=== PATIENT | female | born 1970 | race African-American/Black ===

== ENCOUNTER 2017-10-15 00:59 | Inpatient (IN) ==
[2017-10-15] MEDS ORDERED: ONDANSETRON 4 MG/2 ML VIAL ONE (01:37)
[2017-10-15] MEDS ORDERED: fentaNYL 100 MCG/2 ML VIAL ONE (01:38)
[2017-10-15] MEDS ORDERED: fentaNYL 100 MCG/2 ML VIAL IV STA (02:05)
[2017-10-15] MEDS ORDERED: ONDANSETRON 4 MG/2 ML VIAL IV STA (02:05)
[2017-10-15] MEDS ORDERED: SODIUM CHLORIDE 0.9% 1,000 ML IV STA (02:06)
[2017-10-15 02:14] LABS: Basophils % 0.2 % (0.0-0.8); Eosinophils % 0.2 % (0.00-10.9); Hematocrit 31.8 VOL% (35.7-47.0); Hemoglobin 10.2 GM/DL (12.0-16.0); Immature Granulocytes % 0.2 %; Immature Granulocytes Absolute 0.01 #; Lymphocytes # 1.4 10*3/uL (1.4-4.0); Lymphocytes % 23.4 % (21.3-54.2); Mean Corpuscular HGB Conc 32.1 GM/DL (32-36); Mean Corpuscular Hemoglobin 20 PG (27-34); Mean Corpuscular Volume 63.5 FL (87-102); Mean Platelet Volume 9.3 FL (9.6-12.0); Monocytes # 0.5 10*3/uL (0.11-0.8); Neutrophils # 4.1 10*3/uL (1.4-7.4); Platelet Count 303 T/CUMM (130-400); Red Blood Count 5.01 MC/CUMM (3.8-5.5); Red Cell Distribution Width 23.2 % (9.3-17.3)
[2017-10-15 02:34] LABS: Albumin 2.5 G/DL (3.4-5.0); Bilirubin,Total 0.6 MG/DL (0.2-1.0); Calcium 8.5 MG/DL (8.5-10.1); Osmolality,Calculated 279.5 MOS/KG (273-304); Potassium 3.4 MMOL/L (3.5-5.1); Total Protein 8.3 G/DL (6.4-8.3)
[2017-10-15 02:49] LABS: Anisocytosis 2+; Poikilocytosis 1+
[2017-10-15 02:50] LABS: Target Cells 2+
[2017-10-15] MEDS ORDERED: MEPERIDINE 50 MG/1 ML VIAL ONE (03:15)
[2017-10-15] MEDS ORDERED: MEPERIDINE 50 MG/1 ML VIAL IV STA (03:15)
[2017-10-15] MEDS ORDERED: ONDANSETRON 4 MG/2 ML VIAL IV PRN (04:33)
[2017-10-15] MEDS: HYDROXYUREA 500 MG CAPSULE PO SCH ×3 (08:07→20:54)
[2017-10-15] MEDS: DOCUSATE SODIUM 100 MG CAPSULE PO PRN (08:07)
[2017-10-15] MEDS: PANTOPRAZOLE 40 MG TABLET PO SCH (08:07)
[2017-10-15] MEDS: DIVALPROEX 500 MG TABLET PO SCH ×3 (08:08→20:54)
[2017-10-15] MEDS: ENOXAPARIN 40 MG/0.4 ML SYRINGE SUBCUT SCH (08:08)
[2017-10-15] MEDS: MEPERIDINE 50 MG/1 ML VIAL IV PRN ×4 (08:08→20:59)
[2017-10-15] MEDS: FOLIC ACID 1 MG TABLET PO SCH (08:08)
[2017-10-15] MEDS: SODIUM CHLORIDE 0.9% 1,000 ML IV SCH ×2 (08:10→20:58)
[2017-10-15] MEDS: FERROUS SULFATE 325 MG TABLET PO SCH ×3 (08:37→20:54)
[2017-10-15] MEDS: IBUPROFEN 800 MG TABLET PO SCH ×3 (11:05→17:41)
[2017-10-16] MEDS: MEPERIDINE 50 MG/1 ML VIAL IV PRN ×5 (01:49→20:36)
[2017-10-16 04:33] LABS: Basophils % 0.2 % (0.0-0.8); Eosinophils % 0.4 % (0.00-10.9); Hematocrit 18.2 VOL% (35.7-47.0); Immature Granulocytes % 0.2 %; Immature Granulocytes Absolute 0.01 #; Lymphocytes # 1.4 10*3/uL (1.4-4.0); Lymphocytes % 31.3 % (21.3-54.2); Mean Corpuscular HGB Conc 33.5 GM/DL (32-36); Mean Corpuscular Hemoglobin 21 PG (27-34); Mean Corpuscular Volume 61.5 FL (87-102); Mean Platelet Volume 8.6 FL (9.6-12.0); Monocytes # 0.3 10*3/uL (0.11-0.8); Monocytes % 7.5 % (1.7-12.7); Neutrophils # 2.7 10*3/uL (1.4-7.4); Neutrophils % 60.4 % (38.7-73.9); Platelet Count 240 T/CUMM (130-400); Red Blood Count 2.96 MC/CUMM (3.8-5.5); White Blood Count 4.5 T/CUMM (4-12)
[2017-10-16 04:36] LABS: Hemoglobin 6.1 GM/DL (12.0-16.0)
[2017-10-16 05:05] LABS: Calcium 7.8 MG/DL (8.5-10.1); Osmolality,Calculated 284.8 MOS/KG (273-304); Potassium 3.7 MMOL/L (3.5-5.1)
[2017-10-16 05:21] LABS: Basophils % 0.3 % (0.0-0.8); Eosinophils % 0.5 % (0.00-10.9); Hematocrit 18.5 VOL% (35.7-47.0); Immature Granulocytes % 0.3 %; Immature Granulocytes Absolute 0.01 #; Lymphocytes # 1.2 10*3/uL (1.4-4.0); Lymphocytes % 31.7 % (21.3-54.2); Mean Corpuscular HGB Conc 32.4 GM/DL (32-36); Mean Corpuscular Hemoglobin 21 PG (27-34); Mean Corpuscular Volume 63.6 FL (87-102); Monocytes # 0.2 10*3/uL (0.11-0.8); Monocytes % 6.2 % (1.7-12.7); Neutrophils # 2.4 10*3/uL (1.4-7.4); Platelet Count 238 T/CUMM (130-400); Red Blood Count 2.91 MC/CUMM (3.8-5.5); Red Cell Distribution Width 22.1 % (9.3-17.3); White Blood Count 3.9 T/CUMM (4-12)
[2017-10-16 05:42] LABS: Hypochromasia 1+; Ovalocytes Slight; Platelet Estimate Adequate; Target Cells Few
[2017-10-16 05:43] LABS: Microcytosis Slight
[2017-10-16 09:32] LABS: Hematocrit 20.5 VOL% (35.7-47.0); Hemoglobin 6.6 GM/DL (12.0-16.0)
[2017-10-16] MEDS: HYDROXYUREA 500 MG CAPSULE PO SCH ×3 (09:32→20:35)
[2017-10-16] MEDS: FOLIC ACID 1 MG TABLET PO SCH (09:32)
[2017-10-16] MEDS: ENOXAPARIN 40 MG/0.4 ML SYRINGE SUBCUT SCH (09:33)
[2017-10-16] MEDS: IBUPROFEN 800 MG TABLET PO SCH ×3 (09:33→16:53)
[2017-10-16] MEDS: DIVALPROEX 500 MG TABLET PO SCH ×3 (09:33→20:35)
[2017-10-16] MEDS: PANTOPRAZOLE 40 MG TABLET PO SCH (09:33)
[2017-10-16] MEDS: FERROUS SULFATE 325 MG TABLET PO SCH ×3 (09:33→20:36)
[2017-10-16] MEDS: SODIUM CHLORIDE 0.9% 1,000 ML IV SCH ×2 (09:35→22:55)
[2017-10-16] MEDS ORDERED: SODIUM CHLORIDE 0.9% 1,000 ML IV PRN ×2 (09:52→13:59)
[2017-10-16] MEDS: DOCUSATE SODIUM 100 MG CAPSULE PO PRN (14:21)
[2017-10-16] MEDS: MEGESTROL 40 MG TABLET PO SCH ×2 (16:53→20:35)
[2017-10-16 18:33] LABS: Hematocrit 22.3 VOL% (35.7-47.0); Hemoglobin 7.1 GM/DL (12.0-16.0)
[2017-10-17] MEDS: MEPERIDINE 50 MG/1 ML VIAL IV PRN ×4 (00:05→10:58)
[2017-10-17 04:26] LABS: Basophils % 0.2 % (0.0-0.8); Eosinophils % 0.4 % (0.00-10.9); Hematocrit 26.4 VOL% (35.7-47.0); Hemoglobin 8.7 GM/DL (12.0-16.0); Immature Granulocytes % 0.5 %; Immature Granulocytes Absolute 0.03 #; Lymphocytes # 1.4 10*3/uL (1.4-4.0); Lymphocytes % 25.3 % (21.3-54.2); Mean Corpuscular Hemoglobin 23 PG (27-34); Mean Corpuscular Volume 68.4 FL (87-102); Mean Platelet Volume 9.1 FL (9.6-12.0); Monocytes # 0.3 10*3/uL (0.11-0.8); Monocytes % 5.3 % (1.7-12.7); Neutrophils # 3.9 10*3/uL (1.4-7.4); Neutrophils % 68.3 % (38.7-73.9); Platelet Count 270 T/CUMM (130-400); Red Blood Count 3.86 MC/CUMM (3.8-5.5); Red Cell Distribution Width 25.5 % (9.3-17.3); White Blood Count 5.7 T/CUMM (4-12)
[2017-10-17 05:10] LABS: Hypochromasia 1+; Target Cells 1+
[2017-10-17 05:11] LABS: Microcytosis 2+; Ovalocytes Slight
[2017-10-17 05:12] LABS: Platelet Estimate Normal
[2017-10-17 05:14] LABS: Potassium 3.8 MMOL/L (3.5-5.1)
[2017-10-17 08:10] VITALS: BP 119/78
[2017-10-17] MEDS: HYDROXYUREA 500 MG CAPSULE PO SCH (08:44)
[2017-10-17] MEDS: ENOXAPARIN 40 MG/0.4 ML SYRINGE SUBCUT SCH (08:44)
[2017-10-17] MEDS: FERROUS SULFATE 325 MG TABLET PO SCH (08:45)
[2017-10-17] MEDS: MEGESTROL 40 MG TABLET PO SCH (08:45)
[2017-10-17] MEDS: DIVALPROEX 500 MG TABLET PO SCH (08:45)
[2017-10-17] MEDS: FOLIC ACID 1 MG TABLET PO SCH (08:45)
[2017-10-17] MEDS: IBUPROFEN 800 MG TABLET PO SCH ×2 (08:45→11:01)
[2017-10-17] MEDS: PANTOPRAZOLE 40 MG TABLET PO SCH (08:45)
[2017-10-17] MEDS ORDERED: HEPARIN LOCK FLUSH 500 UNIT/5 ML SYRINGE IV ONE (12:52)
== END 2017-10-17 13:45 | disposition home or self-care (01) | DRG 662 ==
LOC: N.EDINP 00:59 → N.ED 00:59 → SUATTDRO 03:51 → N.4E 04:46
PROVIDERS: ADMIT Emergency Medicine; ATTEND Internal Medicine

== ENCOUNTER 2018-06-30 23:10 | Inpatient (IN) ==
[2018-06-30] MEDS ORDERED: SODIUM CHLORIDE 0.9% 1,000 ML IV STA (23:37)
[2018-06-30] MEDS ORDERED: ONDANSETRON 4 MG/2 ML VIAL IV ONE (23:38)
[2018-06-30] MEDS ORDERED: FAMOTIDINE 20 MG/2 ML VIAL IV STA (23:42)
[2018-06-30] MEDS ORDERED: HYDROmorphone 2 MG/1 ML VIAL IV STA (23:42)
[2018-06-30 23:49] LABS: Basophils % 0.2 % (0.0-0.8); Eosinophils % 0.5 % (0.00-10.9); Hematocrit 26.5 VOL% (35.7-47.0); Hemoglobin 8.6 GM/DL (12.0-16.0); Immature Granulocytes % 0.3 %; Immature Granulocytes Absolute 0.02 #; Lymphocytes % 30.4 % (21.3-54.2); Mean Corpuscular HGB Conc 32.5 GM/DL (32-36); Mean Corpuscular Hemoglobin 21 PG (27-34); Monocytes # 0.6 10*3/uL (0.11-0.8); Neutrophils # 3.9 10*3/uL (1.4-7.4); Neutrophils % 59.6 % (38.7-73.9); Platelet Count 353 T/CUMM (130-400); Red Blood Count 4.08 MC/CUMM (3.8-5.5); Red Cell Distribution Width 20.1 % (9.3-17.3); White Blood Count 6.6 T/CUMM (4-12)
[2018-07-01] LABS: Alanine Aminotransferase < 9 U/L (13-56); Alkaline Phosphatase 64 U/L (45-117); Aspartate Amino Transferase 9 U/L (0-37); Blood Urea Nitrogen 10 MG/DL (7-18); Calcium 8.8 MG/DL (8.5-10.1); Glucose 100 MG/DL (74-106); Osmolality,Calculated 275.5 MOS/KG (273-304); Potassium 3.7 MMOL/L (3.5-5.1); Sodium 139 MMOL/L (136-145); Total Protein 8.5 G/DL (6.4-8.3)
[2018-07-01] MEDS ORDERED: HYDROmorphone 2 MG/1 ML VIAL IV STA (00:58)
[2018-07-01] MEDS ORDERED: PROMETHAZINE INJ 12.5 MG in SODIUM CHLORIDE 0.9% 50 ML IV STA (00:58)
[2018-07-01] MEDS ORDERED: SODIUM CHLORIDE 0.45% 1,000 ML IV SCH (01:00)
[2018-07-01] MEDS ORDERED: PROMETHAZINE 25 MG/1 ML VIAL ONE (01:05)
[2018-07-01] MEDS: ENOXAPARIN 40 MG/0.4 ML SYRINGE SUBCUT SCH (01:19)
[2018-07-01] MEDS ORDERED: ENOXAPARIN 40 MG/0.4 ML SYRINGE ONE (01:19)
[2018-07-01] MEDS: ONDANSETRON 4 MG/2 ML VIAL IV PRN (02:23)
[2018-07-01] MEDS: HYDROmorphone 2 MG/1 ML VIAL IV PRN ×5 (02:25→20:26)
[2018-07-01 05:30] LABS: Basophils % 0.2 % (0.0-0.8); Eosinophils % 0.2 % (0.00-10.9); Hematocrit 23.2 VOL% (35.7-47.0); Hemoglobin 7.6 GM/DL (12.0-16.0); Immature Granulocytes % 0.4 %; Immature Granulocytes Absolute 0.02 #; Lymphocytes # 1.8 10*3/uL (1.4-4.0); Lymphocytes % 32.7 % (21.3-54.2); Mean Corpuscular HGB Conc 32.8 GM/DL (32-36); Mean Corpuscular Hemoglobin 22 PG (27-34); Mean Corpuscular Volume 65.5 FL (87-102); Mean Platelet Volume 9.7 FL (9.6-12.0); Monocytes # 0.5 10*3/uL (0.11-0.8); Monocytes % 8.6 % (1.7-12.7); Neutrophils # 3.2 10*3/uL (1.4-7.4); Neutrophils % 57.9 % (38.7-73.9); Platelet Count 307 T/CUMM (130-400); Red Blood Count 3.54 MC/CUMM (3.8-5.5); Red Cell Distribution Width 19.9 % (9.3-17.3); White Blood Count 5.5 T/CUMM (4-12)
[2018-07-01 05:51] LABS: Calcium 8.2 MG/DL (8.5-10.1); Osmolality,Calculated 278.4 MOS/KG (273-304); Potassium 3.3 MMOL/L (3.5-5.1)
[2018-07-01] MEDS ORDERED: POTASSIUM CHLORIDE 20 MEQ TABLET PO ONE (06:42)
[2018-07-01] MEDS: PANTOPRAZOLE 40 MG TABLET PO SCH (08:57)
[2018-07-01] MEDS: LACTATED RINGERS 1,000 ML IV SCH ×2 (11:32→20:26)
[2018-07-01] MEDS: HYDROXYUREA 500 MG CAPSULE PO SCH ×2 (16:16→20:26)
[2018-07-01] MEDS: DIVALPROEX 500 MG TABLET PO SCH (20:25)
[2018-07-02] MEDS: ENOXAPARIN 40 MG/0.4 ML SYRINGE SUBCUT SCH (01:09)
[2018-07-02] MEDS: HYDROmorphone 2 MG/1 ML VIAL IV PRN ×6 (01:14→20:13)
[2018-07-02] MEDS: LACTATED RINGERS 1,000 ML IV SCH ×3 (04:46→20:37)
[2018-07-02 07:36] LABS: Eosinophils % 0.5 % (0.00-10.9); Hematocrit 24.4 VOL% (35.7-47.0); Hemoglobin 8.1 GM/DL (12.0-16.0); Immature Granulocytes % 0.5 %; Immature Granulocytes Absolute 0.02 #; Lymphocytes # 1.2 10*3/uL (1.4-4.0); Lymphocytes % 29.3 % (21.3-54.2); Mean Corpuscular HGB Conc 33.2 GM/DL (32-36); Mean Corpuscular Hemoglobin 22 PG (27-34); Mean Corpuscular Volume 64.7 FL (87-102); Monocytes # 0.4 10*3/uL (0.11-0.8); Monocytes % 10.5 % (1.7-12.7); Neutrophils # 2.3 10*3/uL (1.4-7.4); Neutrophils % 59.2 % (38.7-73.9); Platelet Count 287 T/CUMM (130-400); Red Blood Count 3.77 MC/CUMM (3.8-5.5); Red Cell Distribution Width 19.9 % (9.3-17.3); White Blood Count 3.9 T/CUMM (4-12)
[2018-07-02 07:55] LABS: Calcium 8.8 MG/DL (8.5-10.1); Osmolality,Calculated 270.8 MOS/KG (273-304); Potassium 3.8 MMOL/L (3.5-5.1)
[2018-07-02] MEDS: FOLIC ACID 1 MG TABLET PO SCH (08:19)
[2018-07-02] MEDS: PANTOPRAZOLE 40 MG TABLET PO SCH (08:19)
[2018-07-02] MEDS: HYDROXYUREA 500 MG CAPSULE PO SCH ×3 (08:19→20:13)
[2018-07-02] MEDS: DIVALPROEX 500 MG TABLET PO SCH (20:13)
[2018-07-03] MEDS: ENOXAPARIN 40 MG/0.4 ML SYRINGE SUBCUT SCH (01:31)
[2018-07-03] MEDS: HYDROmorphone 2 MG/1 ML VIAL IV PRN ×4 (02:58→12:55)
[2018-07-03] MEDS: LACTATED RINGERS 1,000 ML IV SCH ×2 (04:05→13:32)
[2018-07-03] MEDS: FOLIC ACID 1 MG TABLET PO SCH (09:22)
[2018-07-03] MEDS: HYDROXYUREA 500 MG CAPSULE PO SCH (09:22)
[2018-07-03] MEDS: PANTOPRAZOLE 40 MG TABLET PO SCH (09:22)
[2018-07-03] MEDS: ONDANSETRON 4 MG/2 ML VIAL IV PRN (09:29)
[2018-07-03 12:25] VITALS: BP 90/58
[2018-07-03] MEDS ORDERED: HEPARIN LOCK FLUSH 500 UNIT/5 ML SYRINGE IV ONE (14:11)
== END 2018-07-03 14:15 | disposition home or self-care (01) | DRG 662 ==
LOC: N.ED 23:10 → N.EDINP 07-01 00:46 → SUATTDRO 07-01 00:46 → N.4E 07-01 01:28
PROVIDERS: ADMIT Family Medicine; ATTEND Emergency Medicine

== ENCOUNTER 2019-05-24 18:40 | Inpatient (IN) ==
[2019-05-24] MEDS ORDERED: SODIUM CHLORIDE 0.9% 1,000 ML IV STA (19:00)
[2019-05-24] MEDS ORDERED: ONDANSETRON 4 MG/2 ML VIAL IV STA (19:00)
[2019-05-24] MEDS ORDERED: MEPERIDINE 25 MG/1 ML VIAL IM STA (19:00)
[2019-05-24 19:29] LABS: Basophils % 0.2 % (0.0-0.8); Hematocrit 27.5 VOL% (35.7-47.0); Hemoglobin 8.9 GM/DL (12.0-16.0); Immature Granulocytes % 0.2 %; Immature Granulocytes Absolute 0.01 #; Lymphocytes # 1.3 10*3/uL (1.4-4.0); Lymphocytes % 21.9 % (21.3-54.2); Mean Corpuscular HGB Conc 32.4 GM/DL (32-36); Mean Corpuscular Volume 65.6 FL (87-102); Mean Platelet Volume 8.7 FL (9.6-12.0); Neutrophils % 70.7 % (38.7-73.9); Platelet Count 319 T/CUMM (130-400); Red Blood Count 4.19 MC/CUMM (3.8-5.5); Red Cell Distribution Width 20.5 % (9.3-17.3)
[2019-05-24 19:41] LABS: Barbiturates Screen,Urine Negative (Negative); Benzodiazepines Screen,Urine Negative (Negative); Cannabinoid Screen,Urine Negative (Negative); Opiate Screen,Urine Positive (Negative); Phencyclidine Screen,Urine Negative (Negative)
[2019-05-24 19:46] LABS: INR 1.1; PT Patient Result 11.8 SECS (9.6-12.2)
[2019-05-24 19:49] LABS: Apearance,Urine CLEAR (Clear); Bilirubin,Urine Negative (Negative); Blood, Urine Moderate mg/dL (Negative); Glucose,Urine (UA) Negative (Negative); Ketones,Urine Negative (Negative); Mucus,Urine Occasional /LPF (Occasional); Nitrite,Urine Negative (Negative); Protein,Urine Negative; RBC,Urine 5 /HPF (0-4); Squamous Epithelial Cell,Urine Occasional /HPF (0-10); Urine Color Yellow (Yellow); Urine Specific Gravity 1.013 (1.001-1.035); Urine Urobilinogen < 2.0 EU/DL (0.2-1.0); WBC,Urine <1 /HPF (0-6)
[2019-05-24 19:53] LABS: Alanine Aminotransferase < 9 U/L (13-56); Albumin 2.4 G/DL (3.4-5.0); Alkaline Phosphatase 55 U/L (45-117); Aspartate Amino Transferase 9 U/L (0-37); Bilirubin,Total < 0.39 MG/DL (0.2-1.0); Blood Urea Nitrogen 8 MG/DL (7-18); Calcium 8.3 MG/DL (8.5-10.1); Estimated Glom Filtration Rate 96 ML/MIN; Glucose 87 MG/DL (74-106); Osmolality,Calculated 282.8 MOS/KG (273-304); Total Protein 7.9 G/DL (6.4-8.3); Troponin I < 0.015 NG/ML (0.00-0.045)
[2019-05-24] MEDS ORDERED: MEPERIDINE 25 MG/1 ML VIAL IV STA (20:17)
[2019-05-24] MEDS ORDERED: LACTULOSE 20 GM/30 ML UDCUP PO PRN (20:48)
[2019-05-24] MEDS ORDERED: BISACODYL 5 MG TABLET PO PRN (20:48)
[2019-05-24] MEDS ORDERED: ACETAMINOPHEN 325 MG TABLET PO PRN (20:48)
[2019-05-24 21:25] LABS: Thyroid Stimulating Hormone 0.751 uIU/ml (0.358-3.74)
[2019-05-24] MEDS: SODIUM CHLORIDE 0.9% 1,000 ML IV SCH (21:50)
[2019-05-24] MEDS: ENOXAPARIN 40 MG/0.4 ML SYRINGE SUBCUT SCH (23:36)
[2019-05-25] MEDS: HYDROmorphone 2 MG/1 ML VIAL IV PRN ×5 (00:24→21:02)
[2019-05-25 05:34] LABS: Basophils % 0.2 % (0.0-0.8); Eosinophils % 0.2 % (0.00-10.9); Hematocrit 24.9 VOL% (35.7-47.0); Immature Granulocytes % 0.2 %; Immature Granulocytes Absolute 0.01 #; Lymphocytes # 1.6 10*3/uL (1.4-4.0); Lymphocytes % 32.4 % (21.3-54.2); Mean Corpuscular HGB Conc 32.1 GM/DL (32-36); Mean Corpuscular Volume 66.2 FL (87-102); Mean Platelet Volume 9.3 FL (9.6-12.0); Monocytes % 7.3 % (1.7-12.7); Neutrophils % 59.7 % (38.7-73.9); Platelet Count 337 T/CUMM (130-400); Red Blood Count 3.76 MC/CUMM (3.8-5.5); Red Cell Distribution Width 20.1 % (9.3-17.3); White Blood Count 4.8 T/CUMM (4-12)
[2019-05-25 05:54] LABS: Calcium 8.1 MG/DL (8.5-10.1); Osmolality,Calculated 284.7 MOS/KG (273-304)
[2019-05-25] MEDS: HYDROXYUREA 500 MG CAPSULE PO SCH ×3 (08:52→21:03)
[2019-05-25] MEDS: POTASSIUM CHLORIDE 10 MEQ TABLET PO SCH ×2 (08:52→21:03)
[2019-05-25] MEDS: FOLIC ACID 1 MG TABLET PO SCH (08:53)
[2019-05-25] MEDS: tiZANidine 4 MG TABLET PO SCH ×3 (08:53→21:03)
[2019-05-25] MEDS: MEGESTROL 40 MG TABLET PO SCH ×3 (08:57→21:03)
[2019-05-25] MEDS: PANTOPRAZOLE 40 MG TABLET PO SCH (08:57)
[2019-05-25] MEDS ORDERED: FERROUS SULFATE 325 MG TABLET PO SCH (09:00)
[2019-05-25] MEDS: SODIUM CHLORIDE 0.9% 1,000 ML IV SCH ×2 (14:02→21:12)
[2019-05-25] MEDS: ENOXAPARIN 40 MG/0.4 ML SYRINGE SUBCUT SCH (21:03)
[2019-05-25] MEDS: DIVALPROEX 500 MG TABLET PO SCH (21:03)
[2019-05-26] MEDS: HYDROmorphone 2 MG/1 ML VIAL IV PRN ×5 (02:20→20:52)
[2019-05-26] MEDS: SODIUM CHLORIDE 0.9% 1,000 ML IV SCH ×2 (03:56→17:18)
[2019-05-26 05:43] LABS: Eosinophils % 0.6 % (0.00-10.9); Hematocrit 20.5 VOL% (35.7-47.0); Hemoglobin 6.7 GM/DL (12.0-16.0); Immature Granulocytes % 0.4 %; Immature Granulocytes Absolute 0.02 #; Lymphocytes # 1.6 10*3/uL (1.4-4.0); Lymphocytes % 33.3 % (21.3-54.2); Mean Corpuscular HGB Conc 32.7 GM/DL (32-36); Mean Corpuscular Volume 64.9 FL (87-102); Mean Platelet Volume 8.9 FL (9.6-12.0); Monocytes % 7.5 % (1.7-12.7); Neutrophils % 58.2 % (38.7-73.9); Platelet Count 273 T/CUMM (130-400); Red Blood Count 3.16 MC/CUMM (3.8-5.5); Red Cell Distribution Width 19.9 % (9.3-17.3); White Blood Count 4.9 T/CUMM (4-12)
[2019-05-26] MEDS ORDERED: SODIUM CHLORIDE 0.9% 1,000 ML IV PRN (06:25)
[2019-05-26] MEDS: POTASSIUM CHLORIDE 10 MEQ TABLET PO SCH ×2 (09:25→20:49)
[2019-05-26] MEDS: PANTOPRAZOLE 40 MG TABLET PO SCH (09:25)
[2019-05-26] MEDS: MEGESTROL 40 MG TABLET PO SCH ×3 (09:25→20:52)
[2019-05-26] MEDS: HYDROXYUREA 500 MG CAPSULE PO SCH ×3 (09:25→20:48)
[2019-05-26] MEDS: FOLIC ACID 1 MG TABLET PO SCH (09:25)
[2019-05-26] MEDS: tiZANidine 4 MG TABLET PO SCH ×3 (09:25→20:52)
[2019-05-26 16:33] LABS: Hematocrit 26.8 VOL% (35.7-47.0)
[2019-05-26] MEDS: DIVALPROEX 500 MG TABLET PO SCH (20:48)
[2019-05-26] MEDS: ENOXAPARIN 40 MG/0.4 ML SYRINGE SUBCUT SCH (20:52)
[2019-05-27] MEDS: HYDROmorphone 2 MG/1 ML VIAL IV PRN ×5 (02:23→20:05)
[2019-05-27] MEDS: SODIUM CHLORIDE 0.9% 1,000 ML IV SCH ×3 (02:26→18:20)
[2019-05-27 04:54] LABS: Basophils % 0.2 % (0.0-0.8); Eosinophils % 0.5 % (0.00-10.9); Hematocrit 26.2 VOL% (35.7-47.0); Hemoglobin 8.7 GM/DL (12.0-16.0); Immature Granulocytes % 0.3 %; Immature Granulocytes Absolute 0.02 #; Lymphocytes # 1.7 10*3/uL (1.4-4.0); Lymphocytes % 26.8 % (21.3-54.2); Mean Corpuscular HGB Conc 33.2 GM/DL (32-36); Mean Corpuscular Volume 68.2 FL (87-102); Mean Platelet Volume 9.1 FL (9.6-12.0); Monocytes % 5.9 % (1.7-12.7); Neutrophils % 66.3 % (38.7-73.9); Platelet Count 282 T/CUMM (130-400); Red Blood Count 3.84 MC/CUMM (3.8-5.5); Red Cell Distribution Width 21.8 % (9.3-17.3); White Blood Count 6.3 T/CUMM (4-12)
[2019-05-27] MEDS: MEGESTROL 40 MG TABLET PO SCH ×3 (08:53→20:59)
[2019-05-27] MEDS: HYDROXYUREA 500 MG CAPSULE PO SCH ×3 (08:53→20:59)
[2019-05-27] MEDS: FOLIC ACID 1 MG TABLET PO SCH (08:53)
[2019-05-27] MEDS: PANTOPRAZOLE 40 MG TABLET PO SCH (08:53)
[2019-05-27] MEDS: POTASSIUM CHLORIDE 10 MEQ TABLET PO SCH ×2 (08:53→20:59)
[2019-05-27] MEDS: tiZANidine 4 MG TABLET PO SCH ×3 (08:53→20:59)
[2019-05-27] MEDS: NAFCILLIN 2,000 MG in SODIUM CHLORIDE 0.9% 100 ML IV SCH ×3 (12:19→20:09)
[2019-05-27] MEDS: ONDANSETRON 4 MG/2 ML VIAL IV PRN (18:50)
[2019-05-27] MEDS: DIVALPROEX 500 MG TABLET PO SCH (20:59)
[2019-05-28] MEDS: HYDROmorphone 2 MG/1 ML VIAL IV PRN ×9 (00:52→23:33)
[2019-05-28] MEDS: NAFCILLIN 2,000 MG in SODIUM CHLORIDE 0.9% 100 ML IV SCH ×7 (00:54→23:36)
[2019-05-28] MEDS: SODIUM CHLORIDE 0.9% 1,000 ML IV SCH ×2 (03:48→16:46)
[2019-05-28 04:56] LABS: Eosinophils % 0.4 % (0.00-10.9); Hematocrit 26.4 VOL% (35.7-47.0); Hemoglobin 8.7 GM/DL (12.0-16.0); Immature Granulocytes % 0.2 %; Immature Granulocytes Absolute 0.01 #; Lymphocytes # 1.3 10*3/uL (1.4-4.0); Lymphocytes % 25.4 % (21.3-54.2); Mean Corpuscular Volume 68.8 FL (87-102); Mean Platelet Volume 8.8 FL (9.6-12.0); Monocytes % 5.4 % (1.7-12.7); Neutrophils % 68.6 % (38.7-73.9); Platelet Count 261 T/CUMM (130-400); Red Blood Count 3.84 MC/CUMM (3.8-5.5); Red Cell Distribution Width 22.4 % (9.3-17.3)
[2019-05-28 05:33] LABS: Calcium 8.3 MG/DL (8.5-10.1); Osmolality,Calculated 278.3 MOS/KG (273-304)
[2019-05-28] MEDS: MEGESTROL 40 MG TABLET PO SCH ×3 (08:33→20:56)
[2019-05-28] MEDS: POTASSIUM CHLORIDE 10 MEQ TABLET PO SCH ×2 (08:33→20:56)
[2019-05-28] MEDS: PANTOPRAZOLE 40 MG TABLET PO SCH (08:33)
[2019-05-28] MEDS: HYDROXYUREA 500 MG CAPSULE PO SCH ×3 (08:33→20:56)
[2019-05-28] MEDS: FOLIC ACID 1 MG TABLET PO SCH (08:33)
[2019-05-28] MEDS: tiZANidine 4 MG TABLET PO SCH ×3 (08:34→20:56)
[2019-05-28] MEDS ORDERED: ceFAZolin 1,000 MG in SYRINGE 1 EACH IV ONE (10:12)
[2019-05-28] MEDS ORDERED: BUPIVACAINE 0.25% /EPI 10 ML VIAL ONE (10:56)
[2019-05-28] MEDS ORDERED: LIDOCAINE 1% 20 ML VIAL ONE (10:56)
[2019-05-28] MEDS ORDERED: LACTATED RINGERS 1,000 ML IV SCH (11:30)
[2019-05-28] MEDS ORDERED: LIDOCAINE 2% 5 ML VIAL ONE (12:30)
[2019-05-28] MEDS ORDERED: propofoL 200 MG/20 ML VIAL IV ONE (12:30)
[2019-05-28] MEDS ORDERED: MIDAZOLAM 2 MG/2 ML VIAL ONE (12:31)
[2019-05-28] MEDS ORDERED: SODIUM CHLORIDE 0.9% 100 ML IV ONE (12:31)
[2019-05-28] MEDS ORDERED: fentaNYL 100 MCG/2 ML VIAL ONE (12:31)
[2019-05-28] MEDS ORDERED: ONDANSETRON 4 MG/2 ML VIAL IV PRN (12:43)
[2019-05-28] MEDS ORDERED: ONDANSETRON 4 MG/2 ML VIAL ONE (12:44)
[2019-05-28] MEDS ORDERED: HYDROmorphone 2 MG/1 ML VIAL ONE (12:44)
[2019-05-28] MEDS: DIVALPROEX 500 MG TABLET PO SCH (20:56)
[2019-05-29] MEDS: HYDROmorphone 2 MG/1 ML VIAL IV PRN ×5 (04:23→20:48)
[2019-05-29] MEDS: SODIUM CHLORIDE 0.9% 1,000 ML IV SCH (04:23)
[2019-05-29] MEDS: NAFCILLIN 2,000 MG in SODIUM CHLORIDE 0.9% 100 ML IV SCH ×5 (04:28→20:40)
[2019-05-29 05:20] LABS: Eosinophils % 0.4 % (0.00-10.9); Hematocrit 25.2 VOL% (35.7-47.0); Hemoglobin 8.3 GM/DL (12.0-16.0); Immature Granulocytes % 0.2 %; Immature Granulocytes Absolute 0.01 #; Lymphocytes # 1.1 10*3/uL (1.4-4.0); Lymphocytes % 21.6 % (21.3-54.2); Mean Corpuscular HGB Conc 32.9 GM/DL (32-36); Mean Corpuscular Volume 68.3 FL (87-102); Mean Platelet Volume 9.3 FL (9.6-12.0); Monocytes % 6.9 % (1.7-12.7); Neutrophils % 70.9 % (38.7-73.9); Platelet Count 272 T/CUMM (130-400); Red Blood Count 3.69 MC/CUMM (3.8-5.5); Red Cell Distribution Width 22.5 % (9.3-17.3); White Blood Count 5.2 T/CUMM (4-12)
[2019-05-29 05:42] LABS: Hypochromasia 1+; Target Cells Few
[2019-05-29 05:43] LABS: Platelet Estimate Adequate
[2019-05-29 05:44] LABS: Alanine Aminotransferase < 9 U/L (13-56); Alkaline Phosphatase 55 U/L (45-117); Aspartate Amino Transferase 9 U/L (0-37); Blood Urea Nitrogen 7 MG/DL (7-18); Calcium 8.1 MG/DL (8.5-10.1); Estimated Glom Filtration Rate 96 ML/MIN; Glucose 92 MG/DL (74-106); Osmolality,Calculated 278.3 MOS/KG (273-304); Total Protein 6.9 G/DL (6.4-8.3)
[2019-05-29] MEDS: FOLIC ACID 1 MG TABLET PO SCH (08:05)
[2019-05-29] MEDS: HYDROXYUREA 500 MG CAPSULE PO SCH ×3 (08:05→20:40)
[2019-05-29] MEDS: tiZANidine 4 MG TABLET PO SCH ×3 (08:05→20:40)
[2019-05-29] MEDS: POTASSIUM CHLORIDE 10 MEQ TABLET PO SCH ×2 (08:05→20:40)
[2019-05-29] MEDS: PANTOPRAZOLE 40 MG TABLET PO SCH (08:05)
[2019-05-29] MEDS: MEGESTROL 40 MG TABLET PO SCH ×3 (08:05→20:40)
[2019-05-29] MEDS: DIVALPROEX 500 MG TABLET PO SCH (22:06)
[2019-05-30] MEDS: NAFCILLIN 2,000 MG in SODIUM CHLORIDE 0.9% 100 ML IV SCH ×5 (00:23→15:58)
[2019-05-30] MEDS: HYDROmorphone 2 MG/1 ML VIAL IV PRN ×7 (02:10→21:44)
[2019-05-30] MEDS: SODIUM CHLORIDE 0.9% 1,000 ML IV SCH ×5 (02:20→18:01)
[2019-05-30 07:26] LABS: Basophils % 0.2 % (0.0-0.8); Eosinophils % 0.6 % (0.00-10.9); Hematocrit 26.2 VOL% (35.7-47.0); Hemoglobin 8.8 GM/DL (12.0-16.0); Immature Granulocytes % 0.4 %; Immature Granulocytes Absolute 0.02 #; Lymphocytes # 1.1 10*3/uL (1.4-4.0); Lymphocytes % 20.6 % (21.3-54.2); Mean Corpuscular HGB Conc 33.6 GM/DL (32-36); Mean Corpuscular Volume 67.4 FL (87-102); Mean Platelet Volume 9.3 FL (9.6-12.0); Monocytes % 3.8 % (1.7-12.7); Neutrophils % 74.4 % (38.7-73.9); Platelet Count 278 T/CUMM (130-400); Red Blood Count 3.89 MC/CUMM (3.8-5.5); Red Cell Distribution Width 23.2 % (9.3-17.3); White Blood Count 5.3 T/CUMM (4-12)
[2019-05-30 07:37] LABS: Calcium 8.4 MG/DL (8.5-10.1); Osmolality,Calculated 274.7 MOS/KG (273-304)
[2019-05-30 07:48] LABS: Hypochromasia 1+; Microcytosis 1+
[2019-05-30 07:49] LABS: Anisocytosis 1+; Target Cells Few; Tear Drop Cells Slight
[2019-05-30 07:50] LABS: Platelet Estimate Normal
[2019-05-30] MEDS: HYDROXYUREA 500 MG CAPSULE PO SCH ×3 (08:04→21:29)
[2019-05-30] MEDS: FOLIC ACID 1 MG TABLET PO SCH (08:04)
[2019-05-30] MEDS: tiZANidine 4 MG TABLET PO SCH ×3 (08:04→21:31)
[2019-05-30] MEDS: POTASSIUM CHLORIDE 10 MEQ TABLET PO SCH ×2 (08:04→21:31)
[2019-05-30] MEDS: PANTOPRAZOLE 40 MG TABLET PO SCH (08:04)
[2019-05-30] MEDS: MEGESTROL 40 MG TABLET PO SCH ×3 (08:04→21:31)
[2019-05-30] MEDS: LEVOFLOXACIN INJ 500 MG in PREMIX 1 EACH IV SCH (17:16)
[2019-05-30] MEDS: DIVALPROEX 500 MG TABLET PO SCH (21:31)
[2019-05-31] MEDS: HYDROmorphone 2 MG/1 ML VIAL IV PRN ×3 (05:28→19:52)
[2019-05-31 06:29] LABS: Basophils % 0.2 % (0.0-0.8); Hematocrit 25.3 VOL% (35.7-47.0); Hemoglobin 8.3 GM/DL (12.0-16.0); Immature Granulocytes % 0.7 %; Immature Granulocytes Absolute 0.03 #; Lymphocytes # 0.9 10*3/uL (1.4-4.0); Lymphocytes % 21.8 % (21.3-54.2); Mean Corpuscular HGB Conc 32.8 GM/DL (32-36); Mean Corpuscular Volume 68.4 FL (87-102); Mean Platelet Volume 9.3 FL (9.6-12.0); Monocytes % 5.2 % (1.7-12.7); Neutrophils % 72.1 % (38.7-73.9); Platelet Count 259 T/CUMM (130-400); Red Cell Distribution Width 23.5 % (9.3-17.3); White Blood Count 4.3 T/CUMM (4-12)
[2019-05-31 06:53] LABS: Microcytosis 1+; Target Cells Few
[2019-05-31 06:54] LABS: Anisocytosis 1+; Hypochromasia 1+; Ovalocytes Slight; Platelet Estimate Normal; Spherocytes Slight
[2019-05-31 06:59] LABS: Calcium 8.2 MG/DL (8.5-10.1); Osmolality,Calculated 270.8 MOS/KG (273-304)
[2019-05-31] MEDS: SODIUM CHLORIDE 0.9% 1,000 ML IV SCH ×3 (07:56→17:33)
[2019-05-31] MEDS: tiZANidine 4 MG TABLET PO SCH ×3 (09:32→21:03)
[2019-05-31] MEDS: HYDROXYUREA 500 MG CAPSULE PO SCH ×3 (09:33→21:03)
[2019-05-31] MEDS: FOLIC ACID 1 MG TABLET PO SCH (09:34)
[2019-05-31] MEDS: DOCUSATE SODIUM 100 MG CAPSULE PO PRN (09:34)
[2019-05-31] MEDS: PANTOPRAZOLE 40 MG TABLET PO SCH (09:34)
[2019-05-31] MEDS: MEGESTROL 40 MG TABLET PO SCH ×3 (09:35→21:03)
[2019-05-31] MEDS: POTASSIUM CHLORIDE 10 MEQ TABLET PO SCH ×2 (09:36→21:02)
[2019-05-31] MEDS: LEVOFLOXACIN INJ 500 MG in PREMIX 1 EACH IV SCH (17:35)
[2019-05-31] MEDS: OXACILLIN 1,000 MG in SODIUM CHLORIDE 0.9% 100 ML IV SCH (19:55)
[2019-05-31] MEDS: DIVALPROEX 500 MG TABLET PO SCH (21:03)
[2019-05-31] MEDS: DICLOFENAC 1% GEL 100 GM TUBE TOP SCH (21:04)
[2019-06-01] MEDS: OXACILLIN 1,000 MG in SODIUM CHLORIDE 0.9% 100 ML IV SCH ×4 (02:29→20:12)
[2019-06-01] MEDS: HYDROmorphone 2 MG/1 ML VIAL IV PRN ×2 (03:52→07:49)
[2019-06-01] MEDS: SODIUM CHLORIDE 0.9% 1,000 ML IV SCH ×3 (03:55→12:14)
[2019-06-01 07:43] LABS: Eosinophils % 0.3 % (0.00-10.9); Hemoglobin 8.2 GM/DL (12.0-16.0); Immature Granulocytes % 0.3 %; Immature Granulocytes Absolute 0.01 #; Lymphocytes # 0.8 10*3/uL (1.4-4.0); Lymphocytes % 26.3 % (21.3-54.2); Mean Corpuscular HGB Conc 32.8 GM/DL (32-36); Mean Corpuscular Volume 68.9 FL (87-102); Mean Platelet Volume 8.5 FL (9.6-12.0); Monocytes % 6.9 % (1.7-12.7); Neutrophils % 66.2 % (38.7-73.9); Red Blood Count 3.63 MC/CUMM (3.8-5.5); Red Cell Distribution Width 23.4 % (9.3-17.3); White Blood Count 3.2 T/CUMM (4-12)
[2019-06-01 07:46] LABS: Platelet Count 207 T/CUMM (130-400)
[2019-06-01 08:05] LABS: Anisocytosis 2+; Platelet Estimate Normal; Polychromasia Slight; Target Cells 1+
[2019-06-01 08:06] LABS: Calcium 8.1 MG/DL (8.5-10.1); Hypochromasia Slight; Osmolality,Calculated 274.7 MOS/KG (273-304)
[2019-06-01] MEDS: LIDOCAINE 5% PATCH TRANSDERM SCH (09:11)
[2019-06-01] MEDS: tiZANidine 4 MG TABLET PO SCH ×3 (09:13→20:08)
[2019-06-01] MEDS: POTASSIUM CHLORIDE 10 MEQ TABLET PO SCH ×2 (09:13→20:07)
[2019-06-01] MEDS: FOLIC ACID 1 MG TABLET PO SCH (09:13)
[2019-06-01] MEDS: HYDROXYUREA 500 MG CAPSULE PO SCH ×3 (09:13→20:08)
[2019-06-01] MEDS: PANTOPRAZOLE 40 MG TABLET PO SCH (09:13)
[2019-06-01] MEDS: DICLOFENAC 1% GEL 100 GM TUBE TOP SCH ×3 (09:14→20:12)
[2019-06-01] MEDS: MEGESTROL 40 MG TABLET PO SCH ×3 (09:14→20:07)
[2019-06-01] MEDS: oxyCODONE/ACETAMINOPHEN 5-325 MG TABLET PO PRN ×2 (13:20→20:08)
[2019-06-01] MEDS: DIVALPROEX 500 MG TABLET PO SCH (20:11)
[2019-06-02] MEDS: oxyCODONE/ACETAMINOPHEN 5-325 MG TABLET PO PRN ×4 (02:15→22:17)
[2019-06-02] MEDS: OXACILLIN 1,000 MG in SODIUM CHLORIDE 0.9% 100 ML IV SCH ×4 (02:15→20:46)
[2019-06-02] MEDS ORDERED: MAGNESIUM SULF RIDER 2 GM in PREMIX 1 EACH IV ONE (08:41)
[2019-06-02] MEDS: LIDOCAINE 5% PATCH TRANSDERM SCH (09:03)
[2019-06-02] MEDS: tiZANidine 4 MG TABLET PO SCH ×3 (09:05→20:46)
[2019-06-02] MEDS: FOLIC ACID 1 MG TABLET PO SCH (09:05)
[2019-06-02] MEDS: MEGESTROL 40 MG TABLET PO SCH ×3 (09:05→20:50)
[2019-06-02] MEDS: HYDROXYUREA 500 MG CAPSULE PO SCH ×3 (09:06→20:46)
[2019-06-02] MEDS: PANTOPRAZOLE 40 MG TABLET PO SCH (09:06)
[2019-06-02] MEDS: POTASSIUM CHLORIDE 10 MEQ TABLET PO SCH ×2 (09:06→20:46)
[2019-06-02] MEDS: DOCUSATE SODIUM 100 MG CAPSULE PO PRN ×2 (09:06→20:46)
[2019-06-02] MEDS: DICLOFENAC 1% GEL 100 GM TUBE TOP SCH ×3 (09:07→20:48)
[2019-06-02] MEDS: DIVALPROEX 500 MG TABLET PO SCH (20:46)
[2019-06-03] MEDS: OXACILLIN 1,000 MG in SODIUM CHLORIDE 0.9% 100 ML IV SCH ×4 (02:47→20:56)
[2019-06-03] MEDS: oxyCODONE/ACETAMINOPHEN 5-325 MG TABLET PO PRN ×3 (03:54→20:57)
[2019-06-03 05:37] LABS: Calcium 8.6 MG/DL (8.5-10.1); Osmolality,Calculated 271.8 MOS/KG (273-304)
[2019-06-03] MEDS: LIDOCAINE 5% PATCH TRANSDERM SCH (08:55)
[2019-06-03] MEDS: POTASSIUM CHLORIDE 10 MEQ TABLET PO SCH ×2 (08:56→20:56)
[2019-06-03] MEDS: HYDROXYUREA 500 MG CAPSULE PO SCH ×3 (08:56→20:56)
[2019-06-03] MEDS: PANTOPRAZOLE 40 MG TABLET PO SCH (08:56)
[2019-06-03] MEDS: tiZANidine 4 MG TABLET PO SCH ×3 (08:56→20:56)
[2019-06-03] MEDS: MEGESTROL 40 MG TABLET PO SCH ×3 (08:56→20:56)
[2019-06-03] MEDS: FOLIC ACID 1 MG TABLET PO SCH (08:56)
[2019-06-03] MEDS: DICLOFENAC 1% GEL 100 GM TUBE TOP SCH ×3 (08:57→21:00)
[2019-06-03] MEDS ORDERED: FLUCONAZOLE 200 MG TABLET PO ONE (11:24)
[2019-06-03] MEDS: DIVALPROEX 500 MG TABLET PO SCH (20:57)
[2019-06-03] MEDS: MICONAZOLE 2% VAG CREAM 45 GM TUBE VAG SCH (21:00)
[2019-06-04] MEDS: OXACILLIN 1,000 MG in SODIUM CHLORIDE 0.9% 100 ML IV SCH ×2 (02:05→08:44)
[2019-06-04] MEDS: oxyCODONE/ACETAMINOPHEN 5-325 MG TABLET PO PRN ×3 (03:45→20:22)
[2019-06-04 05:40] LABS: Basophils % 0.3 % (0.0-0.8); Hematocrit 25.3 VOL% (35.7-47.0); Hemoglobin 8.5 GM/DL (12.0-16.0); Immature Granulocytes % 0.7 %; Immature Granulocytes Absolute 0.02 #; Lymphocytes # 1.1 10*3/uL (1.4-4.0); Lymphocytes % 34.5 % (21.3-54.2); Mean Corpuscular HGB Conc 33.6 GM/DL (32-36); Mean Corpuscular Volume 69.1 FL (87-102); Mean Platelet Volume 8.5 FL (9.6-12.0); Monocytes % 8.8 % (1.7-12.7); NRBC # 0.02 10*3/uL; Neutrophils % 55.7 % (38.7-73.9); Platelet Count 223 T/CUMM (130-400); Red Blood Count 3.66 MC/CUMM (3.8-5.5); Red Cell Distribution Width 24.1 % (9.3-17.3); White Blood Count 3.1 T/CUMM (4-12)
[2019-06-04 06:01] LABS: Hypochromasia 1+; Platelet Estimate Adequate; Target Cells Few
[2019-06-04 06:04] LABS: Calcium 8.6 MG/DL (8.5-10.1); Osmolality,Calculated 267.1 MOS/KG (273-304)
[2019-06-04] MEDS ORDERED: HYDROmorphone 2 MG/1 ML VIAL IV ONE (08:33)
[2019-06-04] MEDS: MICONAZOLE 2% VAG CREAM 45 GM TUBE VAG SCH ×2 (08:44→20:29)
[2019-06-04] MEDS: LIDOCAINE 5% PATCH TRANSDERM SCH (08:45)
[2019-06-04] MEDS: POTASSIUM CHLORIDE 10 MEQ TABLET PO SCH ×2 (08:46→20:23)
[2019-06-04] MEDS: PANTOPRAZOLE 40 MG TABLET PO SCH (08:46)
[2019-06-04] MEDS: tiZANidine 4 MG TABLET PO SCH ×3 (08:46→20:23)
[2019-06-04] MEDS: MEGESTROL 40 MG TABLET PO SCH ×3 (08:46→20:23)
[2019-06-04] MEDS: HYDROXYUREA 500 MG CAPSULE PO SCH ×3 (08:46→20:22)
[2019-06-04] MEDS: FOLIC ACID 1 MG TABLET PO SCH (08:46)
[2019-06-04] MEDS: DICLOFENAC 1% GEL 100 GM TUBE TOP SCH ×3 (08:48→20:29)
[2019-06-04] MEDS: SODIUM CHLORIDE 0.9% 1,000 ML IV SCH ×2 (09:20→19:01)
[2019-06-04] MEDS: ONDANSETRON 4 MG/2 ML VIAL IV PRN ×2 (11:26→20:23)
[2019-06-04] MEDS: OXACILLIN 2,000 MG in SODIUM CHLORIDE 0.9% 100 ML IV SCH ×3 (13:49→20:28)
[2019-06-04] MEDS: DIVALPROEX 500 MG TABLET PO SCH (20:23)
[2019-06-05] MEDS: OXACILLIN 2,000 MG in SODIUM CHLORIDE 0.9% 100 ML IV SCH ×6 (00:09→21:01)
[2019-06-05] MEDS: oxyCODONE/ACETAMINOPHEN 5-325 MG TABLET PO PRN ×4 (02:54→20:49)
[2019-06-05] MEDS: DOCUSATE SODIUM 100 MG CAPSULE PO PRN (09:32)
[2019-06-05] MEDS: POTASSIUM CHLORIDE 10 MEQ TABLET PO SCH ×2 (09:32→20:49)
[2019-06-05] MEDS: tiZANidine 4 MG TABLET PO SCH ×3 (09:32→20:49)
[2019-06-05] MEDS: MICONAZOLE 2% VAG CREAM 45 GM TUBE VAG SCH ×2 (09:32→20:53)
[2019-06-05] MEDS: HYDROXYUREA 500 MG CAPSULE PO SCH ×3 (09:32→20:44)
[2019-06-05] MEDS: MEGESTROL 40 MG TABLET PO SCH ×3 (09:32→20:49)
[2019-06-05] MEDS: FOLIC ACID 1 MG TABLET PO SCH (09:32)
[2019-06-05] MEDS: DICLOFENAC 1% GEL 100 GM TUBE TOP SCH ×3 (09:32→20:53)
[2019-06-05] MEDS: LIDOCAINE 5% PATCH TRANSDERM SCH (09:33)
[2019-06-05] MEDS: PANTOPRAZOLE 40 MG TABLET PO SCH (09:35)
[2019-06-05] MEDS: DIVALPROEX 500 MG TABLET PO SCH (20:49)
[2019-06-06] MEDS: OXACILLIN 2,000 MG in SODIUM CHLORIDE 0.9% 100 ML IV SCH ×3 (01:33→09:05)
[2019-06-06] MEDS: oxyCODONE/ACETAMINOPHEN 5-325 MG TABLET PO PRN ×4 (04:41→23:00)
[2019-06-06] MEDS: HYDROXYUREA 500 MG CAPSULE PO SCH ×3 (08:17→20:26)
[2019-06-06] MEDS: PANTOPRAZOLE 40 MG TABLET PO SCH (08:17)
[2019-06-06] MEDS: MEGESTROL 40 MG TABLET PO SCH ×3 (08:17→20:26)
[2019-06-06] MEDS: tiZANidine 4 MG TABLET PO SCH ×3 (08:17→20:26)
[2019-06-06] MEDS: DOCUSATE SODIUM 100 MG CAPSULE PO PRN (08:17)
[2019-06-06] MEDS: FOLIC ACID 1 MG TABLET PO SCH (08:17)
[2019-06-06] MEDS: POTASSIUM CHLORIDE 10 MEQ TABLET PO SCH ×2 (08:18→20:26)
[2019-06-06] MEDS: LIDOCAINE 5% PATCH TRANSDERM SCH (08:18)
[2019-06-06] MEDS: MICONAZOLE 2% VAG CREAM 45 GM TUBE VAG SCH ×2 (08:18→20:28)
[2019-06-06] MEDS: DICLOFENAC 1% GEL 100 GM TUBE TOP SCH ×3 (08:18→20:28)
[2019-06-06] MEDS: VANCOMYCIN INJ 1,000 MG in SODIUM CHLORIDE 0.9% 250 ML IV SCH ×2 (15:21→17:37)
[2019-06-06] MEDS: DIVALPROEX 500 MG TABLET PO SCH (20:26)
[2019-06-07] MEDS: VANCOMYCIN INJ 1,000 MG in SODIUM CHLORIDE 0.9% 250 ML IV SCH ×2 (03:45→15:16)
[2019-06-07] MEDS: oxyCODONE/ACETAMINOPHEN 5-325 MG TABLET PO PRN ×3 (04:56→20:16)
[2019-06-07] MEDS ORDERED: HYDROmorphone 2 MG/1 ML VIAL IV ONE (08:27)
[2019-06-07] MEDS: POTASSIUM CHLORIDE 10 MEQ TABLET PO SCH ×2 (08:49→20:16)
[2019-06-07] MEDS: FOLIC ACID 1 MG TABLET PO SCH (08:49)
[2019-06-07] MEDS: tiZANidine 4 MG TABLET PO SCH ×3 (08:49→20:16)
[2019-06-07] MEDS: HYDROXYUREA 500 MG CAPSULE PO SCH ×3 (08:49→20:15)
[2019-06-07] MEDS: PANTOPRAZOLE 40 MG TABLET PO SCH (08:49)
[2019-06-07] MEDS: DICLOFENAC 1% GEL 100 GM TUBE TOP SCH ×3 (08:49→20:18)
[2019-06-07] MEDS: MEGESTROL 40 MG TABLET PO SCH ×3 (08:49→20:16)
[2019-06-07] MEDS: MICONAZOLE 2% VAG CREAM 45 GM TUBE VAG SCH (08:50)
[2019-06-07] MEDS: LIDOCAINE 5% PATCH TRANSDERM SCH (08:50)
[2019-06-07] MEDS ORDERED: fentaNYL 25 MCG/HR PATCH TRANSDERM SCH (09:00)
[2019-06-07] MEDS: DIVALPROEX 500 MG TABLET PO SCH (20:16)
[2019-06-08] MEDS: MICONAZOLE 2% VAG CREAM 45 GM TUBE VAG SCH ×3 (01:10→20:42)
[2019-06-08] MEDS: VANCOMYCIN INJ 1,000 MG in SODIUM CHLORIDE 0.9% 250 ML IV SCH ×3 (02:15→23:52)
[2019-06-08 04:43] LABS: Hematocrit 23.5 VOL% (35.7-47.0); Hemoglobin 7.8 GM/DL (12.0-16.0); Immature Granulocytes % 0.4 %; Immature Granulocytes Absolute 0.01 #; Lymphocytes # 1.4 10*3/uL (1.4-4.0); Lymphocytes % 52.4 % (21.3-54.2); Mean Corpuscular HGB Conc 33.2 GM/DL (32-36); Mean Corpuscular Volume 70.1 FL (87-102); Mean Platelet Volume 8.6 FL (9.6-12.0); Monocytes % 10.2 % (1.7-12.7); NRBC # 0.03 10*3/uL; Platelet Count 237 T/CUMM (130-400); Red Blood Count 3.35 MC/CUMM (3.8-5.5); Red Cell Distribution Width 25.5 % (9.3-17.3); White Blood Count 2.8 T/CUMM (4-12)
[2019-06-08 05:14] LABS: Calcium 8.6 MG/DL (8.5-10.1)
[2019-06-08 05:20] LABS: Lymphocytes 44 % (20-55); Segmented Neutrophils 42 % (50-85); Total Cells Counted 100
[2019-06-08 05:22] LABS: Hypochromasia 2+; Platelet Estimate Normal
[2019-06-08 05:23] LABS: Anisocytosis 3+; Macrocytosis 2+; Microcytosis 1+; Polychromasia 2+
[2019-06-08 05:32] LABS: Acanthocytes 2+
[2019-06-08] MEDS: oxyCODONE/ACETAMINOPHEN 5-325 MG TABLET PO PRN ×3 (07:38→23:53)
[2019-06-08] MEDS: DICLOFENAC 1% GEL 100 GM TUBE TOP SCH ×3 (08:35→20:42)
[2019-06-08] MEDS: LIDOCAINE 5% PATCH TRANSDERM SCH (08:35)
[2019-06-08] MEDS: HYDROXYUREA 500 MG CAPSULE PO SCH ×3 (08:36→20:41)
[2019-06-08] MEDS: POTASSIUM CHLORIDE 10 MEQ TABLET PO SCH ×2 (08:36→20:46)
[2019-06-08] MEDS: tiZANidine 4 MG TABLET PO SCH ×3 (08:37→20:41)
[2019-06-08] MEDS: PANTOPRAZOLE 40 MG TABLET PO SCH (08:37)
[2019-06-08] MEDS: FOLIC ACID 1 MG TABLET PO SCH (08:37)
[2019-06-08] MEDS: MEGESTROL 40 MG TABLET PO SCH ×3 (08:37→20:41)
[2019-06-08] MEDS ORDERED: HYDROmorphone 2 MG/1 ML VIAL IV ONE (09:25)
[2019-06-08] MEDS ORDERED: fentaNYL 50 MCG/HR PATCH TRANSDERM SCH (09:25)
[2019-06-08] MEDS ORDERED: SODIUM CHLORIDE 0.9% 1,000 ML IV PRN (09:26)
[2019-06-08] MEDS: DIVALPROEX 500 MG TABLET PO SCH (20:40)
[2019-06-09 04:42] LABS: Hematocrit 30.6 VOL% (35.7-47.0); Hemoglobin 10.3 GM/DL (12.0-16.0); Immature Granulocytes % 0.3 %; Immature Granulocytes Absolute 0.01 #; Lymphocytes # 1.4 10*3/uL (1.4-4.0); Lymphocytes % 46.7 % (21.3-54.2); Mean Corpuscular HGB Conc 33.7 GM/DL (32-36); Mean Corpuscular Volume 74.5 FL (87-102); Mean Platelet Volume 8.1 FL (9.6-12.0); Monocytes % 12.5 % (1.7-12.7); NRBC # 0.02 10*3/uL; Neutrophils % 40.5 % (38.7-73.9); Platelet Count 217 T/CUMM (130-400); Red Blood Count 4.11 MC/CUMM (3.8-5.5); Red Cell Distribution Width 27.5 % (9.3-17.3); White Blood Count 2.9 T/CUMM (4-12)
[2019-06-09 05:30] LABS: Anisocytosis 1+; Hypochromasia 2+; Microcytosis 1+; Spherocytes Slight; Target Cells Few
[2019-06-09 05:31] LABS: Platelet Estimate Normal; Tear Drop Cells Slight
[2019-06-09 05:40] LABS: Calcium 8.9 MG/DL (8.5-10.1)
[2019-06-09] MEDS: MICONAZOLE 2% VAG CREAM 45 GM TUBE VAG SCH ×2 (08:36→20:40)
[2019-06-09] MEDS: DICLOFENAC 1% GEL 100 GM TUBE TOP SCH ×3 (08:36→20:40)
[2019-06-09] MEDS: tiZANidine 4 MG TABLET PO SCH ×3 (08:36→20:38)
[2019-06-09] MEDS: MEGESTROL 40 MG TABLET PO SCH ×3 (08:36→20:38)
[2019-06-09] MEDS: PANTOPRAZOLE 40 MG TABLET PO SCH (08:36)
[2019-06-09] MEDS: POTASSIUM CHLORIDE 10 MEQ TABLET PO SCH ×2 (08:36→20:38)
[2019-06-09] MEDS: HYDROXYUREA 500 MG CAPSULE PO SCH ×3 (08:36→20:38)
[2019-06-09] MEDS: FOLIC ACID 1 MG TABLET PO SCH (08:37)
[2019-06-09] MEDS: LIDOCAINE 5% PATCH TRANSDERM SCH (08:37)
[2019-06-09] MEDS: VANCOMYCIN INJ 1,000 MG in SODIUM CHLORIDE 0.9% 250 ML IV SCH ×2 (08:59→16:56)
[2019-06-09] MEDS: oxyCODONE/ACETAMINOPHEN 5-325 MG TABLET PO PRN ×2 (08:59→20:37)
[2019-06-09] MEDS ORDERED: oxyCODONE/ACETAMINOPHEN 5-325 MG TABLET PO ONE (12:49)
[2019-06-09] MEDS: DIVALPROEX 500 MG TABLET PO SCH (20:38)
[2019-06-10] MEDS: VANCOMYCIN INJ 1,000 MG in SODIUM CHLORIDE 0.9% 250 ML IV SCH ×2 (00:17→09:17)
[2019-06-10] MEDS: oxyCODONE/ACETAMINOPHEN 5-325 MG TABLET PO PRN ×2 (03:33→11:04)
[2019-06-10 04:55] LABS: Hematocrit 29.7 VOL% (35.7-47.0); Hemoglobin 9.8 GM/DL (12.0-16.0); Immature Granulocytes % 0.7 %; Immature Granulocytes Absolute 0.02 #; Lymphocytes # 1.4 10*3/uL (1.4-4.0); Lymphocytes % 46.4 % (21.3-54.2); Mean Corpuscular Volume 75.6 FL (87-102); Mean Platelet Volume 7.8 FL (9.6-12.0); Monocytes % 10.8 % (1.7-12.7); NRBC # 0.02 10*3/uL; Neutrophils % 42.1 % (38.7-73.9); Platelet Count 203 T/CUMM (130-400); Red Blood Count 3.93 MC/CUMM (3.8-5.5); Red Cell Distribution Width 27.9 % (9.3-17.3); White Blood Count 3.1 T/CUMM (4-12)
[2019-06-10 05:08] LABS: Calcium 8.6 MG/DL (8.5-10.1); Osmolality,Calculated 272.1 MOS/KG (273-304)
[2019-06-10 05:32] LABS: Acanthocytes 2+; Anisocytosis 2+; Hypochromasia 2+; Macrocytosis 1+; Microcytosis 1+; Ovalocytes 1+; Platelet Estimate Normal; Target Cells 2+
[2019-06-10] MEDS: POTASSIUM CHLORIDE 10 MEQ TABLET PO SCH (08:36)
[2019-06-10] MEDS: PANTOPRAZOLE 40 MG TABLET PO SCH (08:36)
[2019-06-10] MEDS: HYDROXYUREA 500 MG CAPSULE PO SCH ×2 (08:37→16:13)
[2019-06-10] MEDS: MICONAZOLE 2% VAG CREAM 45 GM TUBE VAG SCH (08:37)
[2019-06-10] MEDS: DICLOFENAC 1% GEL 100 GM TUBE TOP SCH ×2 (08:37→16:14)
[2019-06-10] MEDS: LIDOCAINE 5% PATCH TRANSDERM SCH (08:37)
[2019-06-10] MEDS: FOLIC ACID 1 MG TABLET PO SCH (08:37)
[2019-06-10] MEDS: tiZANidine 4 MG TABLET PO SCH ×2 (08:37→16:14)
[2019-06-10] MEDS: MEGESTROL 40 MG TABLET PO SCH ×2 (08:37→16:13)
[2019-06-10 16:53] VITALS: BP 109/76
== END 2019-06-10 17:02 | disposition home or self-care (01) | DRG 812 ==
LOC: EDBD → EDUNIT# → N.ED 18:40 → N.EDINP 20:48 → SUATTDRO 20:48 → N.4E 21:22
PROVIDERS: ADMIT Internal Medicine Cardiovascular Disease; ATTEND Internal Medicine

== ENCOUNTER 2019-07-16 12:06 | Inpatient (IN) ==
[2019-07-16] MEDS ORDERED: fentaNYL 100 MCG/2 ML VIAL IV STA (12:54)
[2019-07-16] MEDS ORDERED: ONDANSETRON 4 MG/2 ML VIAL IV STA (12:54)
[2019-07-16 13:05] LABS: Basophils % 0.3 % (0.0-0.8); Eosinophils # 0.1 10*3/uL (0.0-0.87); Eosinophils % 0.9 % (0.00-10.9); Hematocrit 30.6 VOL% (35.7-47.0); Hemoglobin 9.8 GM/DL (12.0-16.0); Immature Granulocytes % 0.6 %; Immature Granulocytes Absolute 0.04 #; Lymphocytes # 1.7 10*3/uL (1.4-4.0); Lymphocytes % 24.3 % (21.3-54.2); Mean Corpuscular Volume 78.9 FL (87-102); Mean Platelet Volume 9.1 FL (9.6-12.0); Monocytes % 7.6 % (1.7-12.7); Neutrophils % 66.3 % (38.7-73.9); Platelet Count 365 T/CUMM (130-400); Red Blood Count 3.88 MC/CUMM (3.8-5.5); Red Cell Distribution Width 20.4 % (9.3-17.3)
[2019-07-16 13:16] LABS: Apearance,Urine CLEAR (Clear); Bacteria,Urine Occasional /HPF (Few); Bilirubin,Urine Negative (Negative); Blood, Urine Moderate mg/dL (Negative); Glucose,Urine (UA) Negative (Negative); Ketones,Urine Negative (Negative); Mucus,Urine Occasional /LPF (Occasional); Nitrite,Urine Negative (Negative); Protein,Urine Negative; RBC,Urine 1 /HPF (0-4); Squamous Epithelial Cell,Urine Occasional /HPF (0-10); Urine Color Yellow (Yellow); Urine Specific Gravity 1.006 (1.001-1.035); Urine Urobilinogen < 2.0 EU/DL (0.2-1.0); WBC,Urine 1 /HPF (0-6)
[2019-07-16 13:35] LABS: Barbiturates Screen,Urine Negative (Negative); Benzodiazepines Screen,Urine Negative (Negative); Cannabinoid Screen,Urine Negative (Negative); Opiate Screen,Urine Positive (Negative); Phencyclidine Screen,Urine Negative (Negative)
[2019-07-16 13:35] LABS: Albumin 2.8 G/DL (3.4-5.0); Bilirubin,Total 0.4 MG/DL (0.2-1.0); Calcium 8.6 MG/DL (8.5-10.1); Osmolality,Calculated 275.3 MOS/KG (273-304); Total Protein 7.2 G/DL (6.4-8.3)
[2019-07-16] MEDS ORDERED: ONDANSETRON 4 MG/2 ML VIAL IV PRN (15:14)
[2019-07-16] MEDS ORDERED: NALOXONE 0.4 MG/ML VIAL IV PRN (15:14)
[2019-07-16] MEDS ORDERED: DOCUSATE SODIUM 100 MG CAPSULE PO PRN (15:14)
[2019-07-16] MEDS ORDERED: ACETAMINOPHEN 325 MG TABLET PO PRN (15:14)
[2019-07-16] MEDS ORDERED: SODIUM CHLORIDE 0.9% 1,000 ML IV ONE (15:16)
[2019-07-16] MEDS ORDERED: DAPTOmycin 500 MG VIAL IV SCH (15:30)
[2019-07-16] MEDS ORDERED: HYDROmorphone PCA 30 MG/30 ML SYRINGE IV SCH (15:30)
[2019-07-16] MEDS: ENOXAPARIN 40 MG/0.4 ML SYRINGE SUBCUT SCH (18:32)
[2019-07-16] MEDS: SODIUM CHLORIDE 0.9% 1,000 ML IV SCH (19:15)
[2019-07-16] MEDS: DIVALPROEX 500 MG TABLET PO SCH (21:29)
[2019-07-16] MEDS: FERROUS SULFATE 325 MG TABLET PO SCH (21:29)
[2019-07-16] MEDS: HYDROXYUREA 500 MG CAPSULE PO SCH (21:29)
[2019-07-17] MEDS: SODIUM CHLORIDE 0.9% 1,000 ML IV SCH ×4 (02:55→23:34)
[2019-07-17 05:22] LABS: Basophils % 0.3 % (0.0-0.8); Eosinophils # 0.1 10*3/uL (0.0-0.87); Eosinophils % 1.6 % (0.00-10.9); Hematocrit 23.7 VOL% (35.7-47.0); Hemoglobin 7.9 GM/DL (12.0-16.0); Immature Granulocytes % 0.3 %; Immature Granulocytes Absolute 0.01 #; Lymphocytes # 1.3 10*3/uL (1.4-4.0); Lymphocytes % 33.9 % (21.3-54.2); Mean Corpuscular HGB Conc 33.3 GM/DL (32-36); Mean Corpuscular Volume 76.5 FL (87-102); Mean Platelet Volume 9.1 FL (9.6-12.0); Monocytes % 7.1 % (1.7-12.7); Neutrophils % 56.8 % (38.7-73.9); Platelet Count 244 T/CUMM (130-400); Red Cell Distribution Width 20.1 % (9.3-17.3); White Blood Count 3.8 T/CUMM (4-12)
[2019-07-17 05:56] LABS: Albumin 1.9 G/DL (3.4-5.0); Bilirubin,Total 1.9 MG/DL (0.2-1.0); Calcium 8.3 MG/DL (8.5-10.1); Osmolality,Calculated 279.1 MOS/KG (273-304); Total Protein 6.2 G/DL (6.4-8.3)
[2019-07-17] MEDS: FOLIC ACID 1 MG TABLET PO SCH (08:53)
[2019-07-17] MEDS: FERROUS SULFATE 325 MG TABLET PO SCH ×3 (08:53→20:09)
[2019-07-17] MEDS: HYDROXYUREA 500 MG CAPSULE PO SCH ×3 (08:53→20:09)
[2019-07-17 13:58] LABS: Hematocrit 27.1 VOL% (35.7-47.0); Hemoglobin 8.6 GM/DL (12.0-16.0)
[2019-07-17] MEDS ORDERED: HYDROmorphone PCA 30 MG/30 ML SYRINGE IV SCH (15:30)
[2019-07-17] MEDS: ENOXAPARIN 40 MG/0.4 ML SYRINGE SUBCUT SCH (15:47)
[2019-07-17] MEDS: DIVALPROEX 500 MG TABLET PO SCH (20:09)
[2019-07-18 05:52] LABS: Basophils % 0.2 % (0.0-0.8); Eosinophils # 0.1 10*3/uL (0.0-0.87); Eosinophils % 1.2 % (0.00-10.9); Hematocrit 23.9 VOL% (35.7-47.0); Hemoglobin 7.7 GM/DL (12.0-16.0); Immature Granulocytes % 0.5 %; Immature Granulocytes Absolute 0.02 #; Lymphocytes # 1.3 10*3/uL (1.4-4.0); Lymphocytes % 29.4 % (21.3-54.2); Mean Corpuscular HGB Conc 32.2 GM/DL (32-36); Mean Corpuscular Volume 76.8 FL (87-102); Mean Platelet Volume 8.8 FL (9.6-12.0); Monocytes % 5.4 % (1.7-12.7); Neutrophils % 63.3 % (38.7-73.9); Platelet Count 245 T/CUMM (130-400); Red Blood Count 3.11 MC/CUMM (3.8-5.5); Red Cell Distribution Width 20.2 % (9.3-17.3); White Blood Count 4.3 T/CUMM (4-12)
[2019-07-18 06:18] LABS: Calcium 8.2 MG/DL (8.5-10.1); Osmolality,Calculated 279.1 MOS/KG (273-304)
[2019-07-18] MEDS: SODIUM CHLORIDE 0.9% 1,000 ML IV SCH (08:12)
[2019-07-18] MEDS: FOLIC ACID 1 MG TABLET PO SCH (09:28)
[2019-07-18] MEDS: HYDROXYUREA 500 MG CAPSULE PO SCH ×2 (09:28→15:08)
[2019-07-18] MEDS: FERROUS SULFATE 325 MG TABLET PO SCH ×2 (09:28→15:08)
[2019-07-18 13:34] VITALS: BP 90/46
== END 2019-07-18 15:25 | disposition home or self-care (01) | DRG 662 ==
LOC: N.ED 12:06 → N.EDINP 15:14 → N.5E 15:37
PROVIDERS: ADMIT Internal Medicine; ATTEND Internal Medicine

== ENCOUNTER 2019-11-14 21:02 | Inpatient (IN) ==
[2019-11-14] MEDS ORDERED: ONDANSETRON 4 MG/2 ML VIAL IV STA (22:03)
[2019-11-14] MEDS ORDERED: SODIUM CHLORIDE 0.9% 1,000 ML IV STA (22:03)
[2019-11-14] MEDS ORDERED: fentaNYL 100 MCG/2 ML VIAL IV STA ×2 (22:03→23:21)
[2019-11-14 22:47] LABS: Basophils % 0.4 % (0.0-0.8); Eosinophils # 0.1 10*3/uL (0.0-0.87); Eosinophils % 0.9 % (0.00-10.9); Hematocrit 24.5 VOL% (35.7-47.0); Immature Granulocytes % 0.4 %; Immature Granulocytes Absolute 0.03 #; Lymphocytes # 1.2 10*3/uL (1.4-4.0); Lymphocytes % 17.6 % (21.3-54.2); Mean Corpuscular HGB Conc 32.7 GM/DL (32-36); Mean Corpuscular Volume 85.4 FL (87-102); Monocytes % 11.8 % (1.7-12.7); Neutrophils % 68.9 % (38.7-73.9); Platelet Count 324 T/CUMM (130-400); Red Blood Count 2.87 MC/CUMM (3.8-5.5); Red Cell Distribution Width 17.4 % (9.3-17.3); White Blood Count 6.9 T/CUMM (4-12)
[2019-11-14 23:07] LABS: Apearance,Urine CLEAR (Clear); Bacteria,Urine Occasional /HPF (Few); Bilirubin,Urine Negative (Negative); Blood, Urine Small mg/dL (Negative); Glucose,Urine (UA) Negative (Negative); Ketones,Urine Negative (Negative); Mucus,Urine Occasional /LPF (Occasional); Nitrite,Urine Negative (Negative); Protein,Urine Negative; RBC,Urine 1 /HPF (0-4); Squamous Epithelial Cell,Urine Occasional /HPF (0-10); Urine Color Yellow (Yellow); Urine Specific Gravity 1.012 (1.001-1.035); Urine Urobilinogen < 2.0 EU/DL (0.2-1.0); WBC,Urine 3 /HPF (0-6)
[2019-11-14 23:10] LABS: Alanine Aminotransferase 16 U/L (13-56); Alkaline Phosphatase 85 U/L (45-117); Aspartate Amino Transferase 15 U/L (0-37); Blood Urea Nitrogen 23 MG/DL (7-18); Calcium 8.5 MG/DL (8.5-10.1); Estimated Glom Filtration Rate 46 ML/MIN; Glucose 98 MG/DL (74-106); Total Protein 7.6 G/DL (6.4-8.3)
[2019-11-14 23:14] LABS: INR 1.1; PT Patient Result 11.9 SECS (9.8-11.9)
[2019-11-15 00:27] LABS: Sedimentation Rate-Westergren 94 MM/HR (0-20)
[2019-11-15] MEDS ORDERED: HYDROmorphone 2 MG/1 ML VIAL IV STA (01:37)
[2019-11-15] MEDS ORDERED: GLUCAGON 1 MG VIAL IM PRN (01:39)
[2019-11-15] MEDS ORDERED: DEXTROSE 50% 25 GM/50 ML VIAL IV PRN (01:39)
[2019-11-15] MEDS ORDERED: SODIUM CHLORIDE 0.9% 1,000 ML IV PRN (01:39)
[2019-11-15] MEDS ORDERED: NALOXONE 0.4 MG/ML VIAL IV PRN (01:39)
[2019-11-15] MEDS ORDERED: ACETAMINOPHEN 325 MG TABLET PO PRN (01:39)
[2019-11-15] MEDS: HYDROmorphone PCA 30 MG/30 ML SYRINGE IV SCH ×2 (05:01→17:00)
[2019-11-15] MEDS: SODIUM CHLORIDE 0.9% 1,000 ML IV SCH ×3 (05:07→22:45)
[2019-11-15 06:55] LABS: Basophils % 0.4 % (0.0-0.8); Eosinophils % 0.7 % (0.00-10.9); Hematocrit 22.2 VOL% (35.7-47.0); Hemoglobin 7.1 GM/DL (12.0-16.0); Immature Granulocytes % 0.4 %; Immature Granulocytes Absolute 0.02 #; Lymphocytes # 1.2 10*3/uL (1.4-4.0); Mean Corpuscular Volume 86.7 FL (87-102); Mean Platelet Volume 8.7 FL (9.6-12.0); Monocytes % 15.2 % (1.7-12.7); Neutrophils % 62.3 % (38.7-73.9); Platelet Count 278 T/CUMM (130-400); Red Blood Count 2.56 MC/CUMM (3.8-5.5); Red Cell Distribution Width 17.7 % (9.3-17.3); White Blood Count 5.5 T/CUMM (4-12)
[2019-11-15 07:05] LABS: Albumin 2.6 G/DL (3.4-5.0); Bilirubin,Total 0.5 MG/DL (0.2-1.0); Calcium 8.4 MG/DL (8.5-10.1); Osmolality,Calculated 281.4 MOS/KG (273-304); Total Protein 6.5 G/DL (6.4-8.3)
[2019-11-15] MEDS: FOLIC ACID 1 MG TABLET PO SCH (09:41)
[2019-11-15] MEDS: APIXABAN 2.5 MG TABLET PO SCH ×2 (09:41→21:51)
[2019-11-15] MEDS: HYDROXYUREA 500 MG CAPSULE PO SCH ×3 (09:41→21:52)
[2019-11-15] MEDS: ONDANSETRON 4 MG/2 ML VIAL IV PRN (21:47)
[2019-11-15] MEDS: DIVALPROEX 500 MG TABLET PO SCH (21:52)
[2019-11-16] MEDS: SODIUM CHLORIDE 0.9% 1,000 ML IV SCH ×4 (02:00→23:11)
[2019-11-16] MEDS: ONDANSETRON 4 MG/2 ML VIAL IV PRN (04:34)
[2019-11-16] MEDS: HYDROXYUREA 500 MG CAPSULE PO SCH ×3 (08:16→21:46)
[2019-11-16] MEDS: APIXABAN 2.5 MG TABLET PO SCH ×2 (08:16→21:46)
[2019-11-16] MEDS: FOLIC ACID 1 MG TABLET PO SCH (08:17)
[2019-11-16 09:56] LABS: Basophils % 0.2 % (0.0-0.8); Eosinophils # 0.1 10*3/uL (0.0-0.87); Eosinophils % 1.2 % (0.00-10.9); Hematocrit 20.4 VOL% (35.7-47.0); Hemoglobin 6.6 GM/DL (12.0-16.0); Immature Granulocytes % 0.2 %; Immature Granulocytes Absolute 0.01 #; Lymphocytes # 0.6 10*3/uL (1.4-4.0); Lymphocytes % 14.3 % (21.3-54.2); Mean Corpuscular HGB Conc 32.4 GM/DL (32-36); Mean Corpuscular Volume 84.3 FL (87-102); Mean Platelet Volume 9.1 FL (9.6-12.0); Monocytes % 11.8 % (1.7-12.7); Neutrophils % 72.3 % (38.7-73.9); Platelet Count 243 T/CUMM (130-400); Red Blood Count 2.42 MC/CUMM (3.8-5.5); Red Cell Distribution Width 17.7 % (9.3-17.3); White Blood Count 4.1 T/CUMM (4-12)
[2019-11-16 10:15] LABS: Calcium 8.6 MG/DL (8.5-10.1); Osmolality,Calculated 272.8 MOS/KG (273-304)
[2019-11-16] MEDS: DIVALPROEX 500 MG TABLET PO SCH (21:46)
[2019-11-17 06:47] LABS: Basophils % 0.6 % (0.0-0.8); Eosinophils % 0.9 % (0.00-10.9); Hematocrit 22.6 VOL% (35.7-47.0); Hemoglobin 7.1 GM/DL (12.0-16.0); Immature Granulocytes % 0.3 %; Immature Granulocytes Absolute 0.01 #; Lymphocytes % 29.3 % (21.3-54.2); Mean Corpuscular HGB Conc 31.4 GM/DL (32-36); Mean Corpuscular Volume 87.3 FL (87-102); Mean Platelet Volume 9.8 FL (9.6-12.0); Monocytes % 6.6 % (1.7-12.7); Neutrophils % 62.3 % (38.7-73.9); Platelet Count 269 T/CUMM (130-400); Red Blood Count 2.59 MC/CUMM (3.8-5.5); White Blood Count 3.5 T/CUMM (4-12)
[2019-11-17 07:07] LABS: Calcium 8.1 MG/DL (8.5-10.1); Osmolality,Calculated 278.4 MOS/KG (273-304)
[2019-11-17] MEDS: HYDROmorphone PCA 30 MG/30 ML SYRINGE IV SCH ×2 (08:34→11:36)
[2019-11-17] MEDS: SODIUM CHLORIDE 0.9% 1,000 ML IV SCH ×3 (08:35→18:40)
[2019-11-17] MEDS: HYDROXYUREA 500 MG CAPSULE PO SCH ×3 (09:43→21:22)
[2019-11-17] MEDS: FOLIC ACID 1 MG TABLET PO SCH (09:43)
[2019-11-17] MEDS: APIXABAN 2.5 MG TABLET PO SCH ×2 (09:43→21:22)
[2019-11-17] MEDS ORDERED: METHYLNALTREXONE 12 MG/0.6 ML VIAL SUBCUT ONE (11:43)
[2019-11-17] MEDS: oxyCODONE IR 5 MG TABLET PO PRN ×2 (12:00→18:39)
[2019-11-17] MEDS: DIVALPROEX 500 MG TABLET PO SCH (21:22)
[2019-11-18] MEDS: oxyCODONE IR 5 MG TABLET PO PRN ×3 (00:58→17:28)
[2019-11-18] MEDS: SODIUM CHLORIDE 0.9% 1,000 ML IV SCH ×2 (02:42→15:54)
[2019-11-18 06:06] LABS: Basophils % 0.3 % (0.0-0.8); Eosinophils % 1.2 % (0.00-10.9); Hematocrit 19.6 VOL% (35.7-47.0); Hemoglobin 6.5 GM/DL (12.0-16.0); Immature Granulocytes % 0.3 %; Immature Granulocytes Absolute 0.01 #; Lymphocytes % 28.8 % (21.3-54.2); Mean Corpuscular HGB Conc 33.2 GM/DL (32-36); Mean Corpuscular Volume 81.7 FL (87-102); Monocytes % 8.8 % (1.7-12.7); Neutrophils % 60.6 % (38.7-73.9); Platelet Count 238 T/CUMM (130-400); Red Cell Distribution Width 18.1 % (9.3-17.3); White Blood Count 3.4 T/CUMM (4-12)
[2019-11-18 06:46] LABS: Osmolality,Calculated 281.1 MOS/KG (273-304)
[2019-11-18] MEDS: FOLIC ACID 1 MG TABLET PO SCH (08:29)
[2019-11-18] MEDS: APIXABAN 2.5 MG TABLET PO SCH ×2 (08:29→20:40)
[2019-11-18] MEDS: HYDROXYUREA 500 MG CAPSULE PO SCH ×3 (08:29→20:40)
[2019-11-18] MEDS ORDERED: SODIUM CHLORIDE 0.9% 1,000 ML IV PRN (12:59)
[2019-11-18] MEDS: SODIUM CHLOR 0.9% KCL 20 MEQ 20 MEQ/1,000 ML BAG IV SCH (19:47)
[2019-11-18] MEDS: DIVALPROEX 500 MG TABLET PO SCH (20:40)
[2019-11-19] MEDS: SODIUM CHLOR 0.9% KCL 20 MEQ 20 MEQ/1,000 ML BAG IV SCH ×4 (05:05→22:46)
[2019-11-19 06:39] LABS: Basophils % 0.5 % (0.0-0.8); Eosinophils % 1.1 % (0.00-10.9); Hematocrit 28.2 VOL% (35.7-47.0); Hemoglobin 9.4 GM/DL (12.0-16.0); Immature Granulocytes % 0.3 %; Immature Granulocytes Absolute 0.01 #; Lymphocytes # 0.9 10*3/uL (1.4-4.0); Lymphocytes % 22.6 % (21.3-54.2); Mean Corpuscular HGB Conc 33.3 GM/DL (32-36); Mean Corpuscular Volume 83.9 FL (87-102); Monocytes % 5.8 % (1.7-12.7); Neutrophils % 69.7 % (38.7-73.9); Platelet Count 239 T/CUMM (130-400); Red Blood Count 3.36 MC/CUMM (3.8-5.5); Red Cell Distribution Width 17.2 % (9.3-17.3); White Blood Count 3.8 T/CUMM (4-12)
[2019-11-19 06:56] LABS: Calcium 8.5 MG/DL (8.5-10.1); Osmolality,Calculated 277.4 MOS/KG (273-304)
[2019-11-19] MEDS: HYDROXYUREA 500 MG CAPSULE PO SCH ×3 (08:55→21:02)
[2019-11-19] MEDS: FOLIC ACID 1 MG TABLET PO SCH (08:55)
[2019-11-19] MEDS: APIXABAN 2.5 MG TABLET PO SCH ×2 (08:55→21:02)
[2019-11-19] MEDS: oxyCODONE IR 5 MG TABLET PO PRN ×2 (08:58→22:54)
[2019-11-19] MEDS: HYDROmorphone PCA 30 MG/30 ML SYRINGE IV SCH (10:44)
[2019-11-19] MEDS: VANCOMYCIN INJ 1,000 MG in SODIUM CHLORIDE 0.9% 250 ML IV SCH (14:55)
[2019-11-19] MEDS: AMPICILLIN/SULBACTAM 1,500 MG in SODIUM CHLORIDE 0.9% 100 ML IV SCH ×2 (17:04→22:44)
[2019-11-19] MEDS: DIVALPROEX 500 MG TABLET PO SCH (21:01)
[2019-11-20] MEDS: VANCOMYCIN INJ 1,000 MG in SODIUM CHLORIDE 0.9% 250 ML IV SCH ×2 (02:12→15:46)
[2019-11-20] MEDS: SODIUM CHLOR 0.9% KCL 20 MEQ 20 MEQ/1,000 ML BAG IV SCH ×4 (04:03→22:43)
[2019-11-20] MEDS: AMPICILLIN/SULBACTAM 1,500 MG in SODIUM CHLORIDE 0.9% 100 ML IV SCH ×4 (04:04→21:15)
[2019-11-20 06:02] LABS: Basophils % 0.3 % (0.0-0.8); Eosinophils % 0.8 % (0.00-10.9); Hematocrit 26.6 VOL% (35.7-47.0); Hemoglobin 8.9 GM/DL (12.0-16.0); Immature Granulocytes % 1.1 %; Immature Granulocytes Absolute 0.04 #; Lymphocytes # 0.9 10*3/uL (1.4-4.0); Lymphocytes % 24.1 % (21.3-54.2); Mean Corpuscular HGB Conc 33.5 GM/DL (32-36); Mean Corpuscular Volume 84.4 FL (87-102); Mean Platelet Volume 9.5 FL (9.6-12.0); Monocytes % 6.1 % (1.7-12.7); Neutrophils % 67.6 % (38.7-73.9); Platelet Count 224 T/CUMM (130-400); Red Blood Count 3.15 MC/CUMM (3.8-5.5); Red Cell Distribution Width 17.7 % (9.3-17.3); White Blood Count 3.6 T/CUMM (4-12)
[2019-11-20 06:28] LABS: Calcium 8.1 MG/DL (8.5-10.1); Osmolality,Calculated 278.4 MOS/KG (273-304)
[2019-11-20] MEDS: oxyCODONE IR 5 MG TABLET PO PRN ×3 (07:46→21:10)
[2019-11-20] MEDS: APIXABAN 2.5 MG TABLET PO SCH ×2 (08:00→21:15)
[2019-11-20] MEDS: FOLIC ACID 1 MG TABLET PO SCH (08:00)
[2019-11-20] MEDS: HYDROXYUREA 500 MG CAPSULE PO SCH ×3 (08:00→21:14)
[2019-11-20] MEDS ORDERED: POTASSIUM CHLORIDE 20 MEQ PACK PO ONE (08:39)
[2019-11-20] MEDS: MAGNESIUM OXIDE 400 MG TABLET PO SCH ×3 (09:07→21:14)
[2019-11-20] MEDS: DIVALPROEX 500 MG TABLET PO SCH (21:13)
[2019-11-21] MEDS: SODIUM CHLOR 0.9% KCL 20 MEQ 20 MEQ/1,000 ML BAG IV SCH ×2 (01:10→10:55)
[2019-11-21] MEDS: oxyCODONE IR 5 MG TABLET PO PRN ×4 (03:29→21:18)
[2019-11-21] MEDS: VANCOMYCIN INJ 1,000 MG in SODIUM CHLORIDE 0.9% 250 ML IV SCH (03:30)
[2019-11-21] MEDS: AMPICILLIN/SULBACTAM 1,500 MG in SODIUM CHLORIDE 0.9% 100 ML IV SCH ×4 (05:55→21:20)
[2019-11-21 08:13] LABS: Eosinophils % 0.4 % (0.00-10.9); Hematocrit 27.8 VOL% (35.7-47.0); Hemoglobin 9.1 GM/DL (12.0-16.0); Immature Granulocytes % 0.4 %; Immature Granulocytes Absolute 0.01 #; Lymphocytes # 0.6 10*3/uL (1.4-4.0); Lymphocytes % 22.5 % (21.3-54.2); Mean Corpuscular HGB Conc 32.7 GM/DL (32-36); Mean Corpuscular Volume 84.8 FL (87-102); Mean Platelet Volume 8.8 FL (9.6-12.0); Monocytes % 5.3 % (1.7-12.7); Neutrophils % 71.4 % (38.7-73.9); Platelet Count 194 T/CUMM (130-400); Red Blood Count 3.28 MC/CUMM (3.8-5.5); White Blood Count 2.6 T/CUMM (4-12)
[2019-11-21 08:43] LABS: Albumin 2.4 G/DL (3.4-5.0); Bilirubin,Total 0.8 MG/DL (0.2-1.0); Calcium 8.5 MG/DL (8.5-10.1); Osmolality,Calculated 273.7 MOS/KG (273-304); Total Protein 6.2 G/DL (6.4-8.3)
[2019-11-21] MEDS: FOLIC ACID 1 MG TABLET PO SCH (08:46)
[2019-11-21] MEDS: HYDROXYUREA 500 MG CAPSULE PO SCH ×3 (08:46→21:18)
[2019-11-21] MEDS: MAGNESIUM OXIDE 400 MG TABLET PO SCH ×3 (08:46→21:18)
[2019-11-21] MEDS: APIXABAN 2.5 MG TABLET PO SCH ×2 (08:46→21:17)
[2019-11-21] MEDS: HYDROmorphone PCA 30 MG/30 ML SYRINGE IV SCH (09:09)
[2019-11-21] MEDS: DIVALPROEX 500 MG TABLET PO SCH (21:17)
[2019-11-22] MEDS: SODIUM CHLOR 0.9% KCL 20 MEQ 20 MEQ/1,000 ML BAG IV SCH ×4 (00:41→19:09)
[2019-11-22] MEDS: oxyCODONE IR 5 MG TABLET PO PRN ×3 (04:11→21:05)
[2019-11-22] MEDS: AMPICILLIN/SULBACTAM 1,500 MG in SODIUM CHLORIDE 0.9% 100 ML IV SCH ×4 (04:12→21:10)
[2019-11-22 06:48] LABS: Eosinophils % 0.5 % (0.00-10.9); Hematocrit 27.3 VOL% (35.7-47.0); Immature Granulocytes % 0.5 %; Immature Granulocytes Absolute 0.01 #; Lymphocytes # 0.8 10*3/uL (1.4-4.0); Lymphocytes % 41.4 % (21.3-54.2); Mean Corpuscular Volume 83.7 FL (87-102); Mean Platelet Volume 9.6 FL (9.6-12.0); Monocytes % 5.8 % (1.7-12.7); Neutrophils % 51.8 % (38.7-73.9); Platelet Count 184 T/CUMM (130-400); Red Blood Count 3.26 MC/CUMM (3.8-5.5); Red Cell Distribution Width 17.8 % (9.3-17.3); White Blood Count 1.9 T/CUMM (4-12)
[2019-11-22 07:18] LABS: Hypochromasia 1+; Lymphocytes 43 % (20-55); Ovalocytes Slight; Platelet Estimate Adequate; Segmented Neutrophils 55 % (50-85); Total Cells Counted 100
[2019-11-22 07:19] LABS: Atypical Lymphocytes Few
[2019-11-22] MEDS: MAGNESIUM OXIDE 400 MG TABLET PO SCH ×3 (08:27→21:05)
[2019-11-22] MEDS: APIXABAN 2.5 MG TABLET PO SCH ×2 (08:28→21:05)
[2019-11-22] MEDS: HYDROXYUREA 500 MG CAPSULE PO SCH ×3 (08:28→21:05)
[2019-11-22] MEDS: FOLIC ACID 1 MG TABLET PO SCH (08:28)
[2019-11-22] MEDS: HYDROmorphone 2 MG/1 ML VIAL IV PRN (13:52)
[2019-11-22] MEDS: DIVALPROEX 500 MG TABLET PO SCH (21:05)
[2019-11-23] MEDS: SODIUM CHLOR 0.9% KCL 20 MEQ 20 MEQ/1,000 ML BAG IV SCH ×3 (02:35→20:51)
[2019-11-23] MEDS: HYDROmorphone 2 MG/1 ML VIAL IV PRN ×2 (02:36→14:44)
[2019-11-23] MEDS: AMPICILLIN/SULBACTAM 1,500 MG in SODIUM CHLORIDE 0.9% 100 ML IV SCH ×4 (04:15→21:41)
[2019-11-23 06:51] LABS: Basophils % 0.6 % (0.0-0.8); Eosinophils % 0.6 % (0.00-10.9); Hematocrit 27.7 VOL% (35.7-47.0); Hemoglobin 9.1 GM/DL (12.0-16.0); Immature Granulocytes % 0.6 %; Immature Granulocytes Absolute 0.01 #; Lymphocytes # 0.7 10*3/uL (1.4-4.0); Lymphocytes % 37.9 % (21.3-54.2); Mean Corpuscular HGB Conc 32.9 GM/DL (32-36); Mean Corpuscular Volume 85.5 FL (87-102); Mean Platelet Volume 9.7 FL (9.6-12.0); Monocytes % 5.1 % (1.7-12.7); Neutrophils % 55.2 % (38.7-73.9); Platelet Count 172 T/CUMM (130-400); Red Blood Count 3.24 MC/CUMM (3.8-5.5); Red Cell Distribution Width 17.7 % (9.3-17.3); White Blood Count 1.8 T/CUMM (4-12)
[2019-11-23 07:40] LABS: Hypochromasia 1+; Microcytosis 1+
[2019-11-23 07:41] LABS: Ovalocytes Slight; Platelet Estimate Adequate; Target Cells Slight
[2019-11-23] MEDS: MAGNESIUM OXIDE 400 MG TABLET PO SCH ×3 (08:46→20:50)
[2019-11-23] MEDS: FOLIC ACID 1 MG TABLET PO SCH (08:47)
[2019-11-23] MEDS: APIXABAN 2.5 MG TABLET PO SCH ×2 (08:47→20:51)
[2019-11-23] MEDS: oxyCODONE IR 5 MG TABLET PO PRN ×2 (09:04→20:50)
[2019-11-23] MEDS: DIVALPROEX 500 MG TABLET PO SCH (20:50)
[2019-11-24] MEDS: HYDROmorphone 2 MG/1 ML VIAL IV PRN ×2 (03:32→15:53)
[2019-11-24] MEDS: AMPICILLIN/SULBACTAM 1,500 MG in SODIUM CHLORIDE 0.9% 100 ML IV SCH ×4 (04:50→22:10)
[2019-11-24 08:00] LABS: Eosinophils % 0.4 % (0.00-10.9); Hematocrit 29.1 VOL% (35.7-47.0); Hemoglobin 9.6 GM/DL (12.0-16.0); Immature Granulocytes % 0.8 %; Immature Granulocytes Absolute 0.02 #; Lymphocytes % 37.5 % (21.3-54.2); Mean Corpuscular Volume 84.3 FL (87-102); Mean Platelet Volume 9.1 FL (9.6-12.0); Monocytes % 4.2 % (1.7-12.7); Neutrophils % 57.1 % (38.7-73.9); Platelet Count 162 T/CUMM (130-400); Red Blood Count 3.45 MC/CUMM (3.8-5.5); White Blood Count 2.6 T/CUMM (4-12)
[2019-11-24 08:24] LABS: Calcium 8.6 MG/DL (8.5-10.1); Osmolality,Calculated 275.4 MOS/KG (273-304)
[2019-11-24] MEDS: FOLIC ACID 1 MG TABLET PO SCH (09:09)
[2019-11-24] MEDS: MAGNESIUM OXIDE 400 MG TABLET PO SCH ×3 (09:09→20:28)
[2019-11-24] MEDS: APIXABAN 2.5 MG TABLET PO SCH ×2 (09:09→20:28)
[2019-11-24] MEDS: oxyCODONE IR 5 MG TABLET PO PRN ×2 (10:33→20:29)
[2019-11-24] MEDS: SODIUM CHLOR 0.9% KCL 20 MEQ 20 MEQ/1,000 ML BAG IV SCH (20:27)
[2019-11-24] MEDS: DIVALPROEX 500 MG TABLET PO SCH (20:28)
[2019-11-25] MEDS: AMPICILLIN/SULBACTAM 1,500 MG in SODIUM CHLORIDE 0.9% 100 ML IV SCH ×2 (04:55→10:59)
[2019-11-25] MEDS: HYDROmorphone 2 MG/1 ML VIAL IV PRN (05:02)
[2019-11-25] MEDS: SODIUM CHLOR 0.9% KCL 20 MEQ 20 MEQ/1,000 ML BAG IV SCH (07:03)
[2019-11-25] MEDS: FOLIC ACID 1 MG TABLET PO SCH (08:47)
[2019-11-25] MEDS: APIXABAN 2.5 MG TABLET PO SCH (08:48)
[2019-11-25] MEDS: oxyCODONE IR 5 MG TABLET PO PRN (08:48)
[2019-11-25] MEDS: MAGNESIUM OXIDE 400 MG TABLET PO SCH (08:48)
[2019-11-25 16:01] VITALS: BP 103/69
== END 2019-11-25 15:50 | DRG 662 ==
LOC: N.EDINP 21:02 → N.ED 21:02 → SUATTDRO 11-15 01:39 → SUPCPDRO 11-15 01:39 → N.3E 11-15 01:41 → N.4E 11-19 10:43
PROVIDERS: ADMIT Family Medicine; ATTEND Family Medicine